=== PATIENT | male | born 1970 | race Two or more races ===

== ENCOUNTER → 2020-01-22 13:16 | Outpatient (BNVA) | payer OTHER, SELFPAY | PROVIDERS: PCP Family Medicine; Referring Provider Family Medicine; Visit Provider Physician Assistant | DX: K75.81 Nonalcoholic steatohepatitis (NASH) (principal) | CPT/HCPCS: 99213 ==

== ENCOUNTER 2020-02-22 11:49 | Outpatient (REF) | payer OTHER, SELFPAY ==
[2020-02-22 13:31] LABS: Bilirubin Direct 0.3 mg/dL (0.0-0.5); Cholesterol 172 mg/dL; HDL Cholesterol 26 mg/dL; LDL Cholesterol Calculated 99 mg/dl; Triglycerides 237 mg/dL
[2020-02-23 07:16] LABS: Insulin Level Total 221.5 uIU/mL
[2020-02-25 08:08] LABS: HBc Num1 0.07 S/CO (0.00-0.79); HBsAGNum1 0.22 S/CO (0.00-0.99); Hepatitis B Core Antibody Nonreactive (Nonreactive); Hepatitis B Surface Antigen Negative (Negative)
[2020-02-25 08:27] LABS: ~Hepatitis B Surface Antibody REACTIVE (Nonreactive); ~Hepatitis C Antibody Nonreactive (Nonreactive)
[2020-02-27 07:46] LABS: HBS Num1 134.62 mIU/mL (0-7.99); Hepatitis A Antibody IgM 0.57 Index (0-0.79); ~HepC Num1 0.14 S/CO (0.00-0.79); ~Hepatitis A Antibody IgM Nonreactive (Nonreactive)
== END 2020-02-22 11:50 | disposition home or self-care (01) ==
LOC: HO.LAB 11:49
PROVIDERS: PCP Family Medicine; Visit Provider Physician Assistant
DX: Z01.84 Encounter for antibody response examination (principal); K75.81 Nonalcoholic steatohepatitis (NASH)
CPT/HCPCS: 80061; 82248; 83525; 86704; 86706; 86709; 86803; 87340

== ENCOUNTER → 2020-03-03 09:04 | Outpatient (BNVA) | payer OTHER, SELFPAY | PROVIDERS: PCP Family Medicine; Visit Provider Physician Assistant | DX: R74.8 Abnormal levels of other serum enzymes (principal) | CPT/HCPCS: Q3014 ==

== ENCOUNTER 2020-03-07 16:19 | Outpatient (REF) | payer OTHER, SELFPAY | END 2020-03-07 16:20 | disposition home or self-care (01) | LOC: HO.LAB 16:19 | PROVIDERS: Visit Provider Internal Medicine | DX: Z20.828 Contact with and (suspected) exposure to other viral communicable diseases (principal) | CPT/HCPCS: C9803; U0003 ==

== ENCOUNTER 2020-04-26 09:49 | Outpatient (REF) | payer OTHER, SELFPAY | END 2020-04-26 09:50 | disposition home or self-care (01) | LOC: HO.LAB 09:49 | PROVIDERS: PCP Family Medicine; Visit Provider Internal Medicine | DX: Z20.822 Contact with and (suspected) exposure to COVID-19 (principal) | CPT/HCPCS: 36415; C9803; U0003 ==

== ENCOUNTER 2020-08-13 08:02 | Outpatient (REF) | payer OTHER, SELFPAY ==
[2020-08-13 10:45] LABS: MANUAL DIFF FLAG NO
[2020-08-13 11:03] LABS: Basophils Percent Auto 0.3 % (0-2); Eosinophils Absolute Auto 0.2 X10*3/uL (0.0-0.4); Eosinophils Percent Auto 2.4 % (0-4); Hematocrit 41.1 % (42-52); Hemoglobin 13.7 g/dl (14.0-18.0); Imm Gran Abs Auto 0.09 X10*3/uL (0.00-0.03); Imm Gran Pct Auto 1.2 % (0.0-0.4); Lymphocytes Absolute Auto 1.8 X10*3/uL (1.2-4.9); Lymphocytes Percent Auto 24.9 % (20-40); Mean Corpuscular HGB Conc 33.3 g/dl (31.0-36.0); Mean Corpuscular Hemoglobin 29.8 pg (27.0-33.0); Mean Corpuscular Volume 89.5 fL (80-98); Mean Platelet Volume 11.7 fL (9.4-12.4); Monocytes Absolute Auto 0.6 X10*3/uL (0.1-1.2); Monocytes Percent Auto 7.7 % (2-11); Neutrophils Absolute Auto 4.7 X10*3/uL (2.0-8.3); Neutrophils Percent Auto 63.5 % (45-73); Platelet Count 178 X10*3/uL (160-400); Red Blood Count 4.59 X10*6/uL (4.60-5.80); Red Cell Distribution Width 12.4 % (11.0-16.0); White Blood Count 7.4 X10*3/uL (4.8-10.8)
[2020-08-13 11:20] LABS: Alanine Aminotransferase 107 U/L (0-40); Albumin Level 4.5 g/dL (3.5-5.0); Alkaline Phosphatase 90 U/L (39-117); Anion Gap 13 (12-20); Aspartate Amino Transferase 58 U/L (5-37); Bilirubin Direct 0.3 mg/dL (0.0-0.5); Bilirubin Total 0.9 mg/dL (0.0-1.0); Blood Urea Nitrogen 12 mg/dL (9-16); Calcium 9.1 mg/dL (8.4-10.2); Carbon Dioxide 25 mmol/L (22-29); Chloride 106 mmol/L (96-108); Cholesterol 195 mg/dL; Estimated Glomerular Filt Rate > 60; Glucose Random 101 mg/dL (60-115); HDL Cholesterol 26 mg/dL; LDL Cholesterol Calculated 127 mg/dl; Potassium 4.1 mmol/L (3.3-5.1); Sodium 140 mmol/L (135-145); Total Protein 7.3 g/dL (6.5-8.0); Triglycerides 213 mg/dL
[2020-08-14 14:12] LABS: Alpha 1 Anti-trypsin 131 mg/dL (83-199)
[2020-08-15 12:47] LABS: Mitochondrial Antibodies NEGATIVE (NEGATIVE)
[2020-08-15 16:01] LABS: Anti Nuclear Antibody Screen NEGATIVE (NEGATIVE)
[2020-08-18 15:57] LABS: Smooth Muscle Antibody <20 U (<20)
== END 2020-08-13 08:03 | disposition home or self-care (01) ==
LOC: HO.LAB 08:02
PROVIDERS: PCP Family Medicine; Referring Provider Family Medicine; Visit Provider Physician Assistant
DX: K76.0 Fatty (change of) liver, not elsewhere classified (principal); R10.11 Right upper quadrant pain; F17.200 Nicotine dependence, unspecified, uncomplicated; R74.8 Abnormal levels of other serum enzymes; K75.81 Nonalcoholic steatohepatitis (NASH); Z12.11 Encounter for screening for malignant neoplasm of colon
CPT/HCPCS: 36415; 80053; 80061; 82103; 82248; 85025; 86038; 86039; 86255; 86256; 99212

== ENCOUNTER 2021-03-26 09:10 | Day surgery (SDC) | payer OTHER, SELFPAY ==
[2021-03-19 11:55] VITALS: BMI 38.0
--- NOTE | 2021-03-25 10:26 | P.CONAN_ITS ---
Documented by User: Lynn Lindsay NP 03/25/21 10:27 HPI - Anesthesia Eval Consult details Narrative: 50yo M for Colonoscopy PMFSH Active Problems Active Problems: All Active Problems (Updated 03/19/21 @ 11:53 by Ingrid Mendoza, DELFINA) CARROLL (nonalcoholic steatohepatitis) (Acute) Screen for colon cancer (Acute) Elevated liver enzymes (Acute) Past Medical History Medical History Arthritis Asthma Constipation Elevated liver enzymes HTN (hypertension) Low back pain CARROLL (nonalcoholic steatohepatitis) Neuropathy DIMITRI on CPAP Family History Family History Father Encounter for kidney dialysis Heart problem High blood pressure Mother Blood circulation, collateral High blood pressure Arthritis Surgical History Surgical History H/O arthroscopy of knee Social History Social History Household Members: Significant Other Alcohol intake: current Alcohol intake frequency: holidays/special occasions only Patient Tobacco Use Status: Current someday Tobacco user Tobacco use type: Cigarette Use of substances other than those prescribed or required for medical reasons: No Have you been hit, kicked, punched, or otherwise hurt by someone within the past year? 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 Allergies Allergy/AdvReac Type Severity Reaction Status Date / Time No Known Allergies Allergy Verified 03/19/21 11:53 Home Medications Medication Instructions Recorded Confirmed Last Taken Type albuterol sulfate 90 mcg/actuation 2 puff INHALATION Q4-6H PRN 01/22/20 03/19/21 Unknown History aerosol inhaler chlorthalidone 25 mg tablet 25 mg PO DAILY 01/22/20 03/19/21 Unknown History cholecalciferol (vitamin D3) 25 25 mcg PO DAILY 01/22/20 03/19/21 Unknown History mcg (1,000 unit) tablet gabapentin 300 mg capsule 300 mg PO TID 01/22/20 03/19/21 Unknown History hydrochlorothiazide 25 mg tablet 25 mg PO DAILY 01/22/20 03/19/21 Unknown Hi story lisinopril 5 mg tablet 5 mg PO DAILY 01/22/20 03/19/21 Unknown History loratadine 10 mg tablet 10 mg PO DAILY 01/22/20 03/19/21 Unknown History meloxicam 7.5 mg tablet 7.5 mg PO DAILY 01/22/20 03/19/21 Unknown History naproxen 500 mg tablet 500 mg PO BID 01/22/20 03/19/21 Unknown History trazodone 50 mg tablet 50 mg PO BEDTIME 01/22/20 03/19/21 Unknown History Exam Exam Date and Time: March 25, 2021 1026 Height,Weight and Vital Signs: Height 6 ft 1 in Weight 130.635 kg Pertinent Lab Results Pertinent Lab Results: Laboratory Tests 08/13/20 08/13/20 09:19 09:19 WBC 7.4 Hgb 13.7 L Hct 41.1 L Plt Count 178 Sodium 140 Potassium 4.1 Chloride 106 Carbon Dioxide 25 BUN 12 Creatinine 1.05 Assessment and Plan Assessment Anesthesia Assessment: Chart Reviewed Documented by User: Regina Agudelo MD 03/26/21 11:12 [facility] Past Medical History Medical History Arthritis Asthma Constipation Elevated liver enzymes HTN (hypertension) Low back pain CARROLL (nonalcoholic steatohepatitis) Neuropathy DIMITRI on CPAP Functional capacity: independent ambulation Family History Family History Father Encounter for kidney dialysis Heart problem High blood pressure Mother Blood circulation, collateral High blood pressure Arthritis Family history of problems with anesthesia: No Surgical History Surgical History H/O arthroscopy of knee History of Problems with Anesthesia: No Social History Social History Household Members: Significant Other Alcohol intake: current Alcohol intake frequency: holidays/special occasions only Patient Tobacco Use Status: Current someday Tobacco user Tobacco use type: Cigarette Use of substances other than those prescribed or required for medical reasons: No Have you been hit, kicked, punched, or otherwise hurt by someone within the past year? 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 Allergies Allergy/AdvReac Type Severity Reaction Status Date / Time No Known Allergies Allergy Verified 03/19/21 11:53 Home Medications Medication Instructions Recorded Confirmed Last Taken Type albuterol sulfate 90 mcg/actuation 2 puff INHALATION Q4-6H PRN 01/22/20 03/19/21 Unknown History aerosol inhaler chlorthalidone 25 mg tablet 25 mg PO DAILY 01/22/20 03/19/21 Unknown History cholecalciferol (vitamin D3) 25 25 mcg PO DAILY 01/22/20 03/19/21 Unknown History mcg (1,000 unit) tablet gabapentin 300 mg capsule 300 mg PO TID 01/22/20 03/19/21 Unknown History hydrochlorothiazide 25 mg tablet 25 mg PO DAILY 01/22/20 03/19/21 Unknown History lisinopril 5 mg tablet 5 mg PO DAILY 01/22/20 03/19/21 Unknown History loratadine 10 mg tablet 10 mg PO DAILY 01/22/20 03/19/21 Unknown History meloxicam 7.5 mg tablet 7.5 mg PO DAILY 01/22/20 03/19/21 Unknown History naproxen 500 mg tablet 500 mg PO BID 01/22/20 03/19/21 Unknown History trazodone 50 mg tablet 50 mg PO BEDTIME 01/22/20 03/19/21 Unknown History Assessment and Plan Final Anesthetic Review Family History of Problems with Anesthesia: No History of Problems with Anesthesia: No ASA Class: III Final Preanesthetic Review: No Changes in Pt Med Stat, Meds/Allgs Chart Reviewed, Consent Obtained/Reviewed, Anes Risks/Benef Reviewed and DNR Form (If Appl.) Patient Risk: Intermediate Procedure Risk: Low Anesthetic Plan Anesthetic Plan: MAC: Disposition: Standard PACU
[2021-03-26 09:41] VITALS: BP 144/95; PULSE 59; RESP 16; TEMP 35.9; O2SAT 97; BMI 38.0
[2021-03-26] MEDS: Lactated Ringers 1,000 ML 100 ML IVCONT (10:03)
--- NOTE | 2021-03-26 10:04 | MHC.SHP ---
Pre-Procedural Eval Section A Date of Service: 03/26/21 Section B Chief Complaint: Screening Relevant Family History (Specify if Yes): No Relevant Social History: Tobacco Use Present Medications: see Short Stay Collaborative assessment Medical History: Significant History (Arthritis Asthma Constipation Elevated liver enzymes HTN (hypertension) Low back pain CARROLL (nonalcoholic steatohepatitis) Neuropathy DIMITRI on CPAP) History of Previous Operations: Relevant previous surgery/procedure and date(s) (knee surg) Allergies: Allergies Allergy/AdvReac Type Severity Reaction Status Date / Time No Known Allergies Allergy Verified 03/19/21 11:53 Review of Systems Sugical H&P ROS: Negative: Constitution, Cardiovascular, Respiratory, Neurological, Psychiatric, Hem-Onc, Allergic/Immunologic, Gastrointestinal, Genitourinary, Musculoskeletal, Integumentary, Endocrine and Eyes/Ears/Nose/Throat Exam Surgical H&P Exam: Normal: HEENT, Normal: Heart, Normal: Lungs, Normal: Extremities, Normal: Abdomen, Normal: Skin and Normal: Neurological Plan Diagnosis/Plan: Unchanged I have reviewed the history and physical and performed a pertinent physical examination on my patient. No changes have occurred unless specified.
--- NOTE | 2021-03-26 11:09 | P.BOP_ITS ---
Brief Operative Note Date of Service: 03/26/21 Pre-op diagnosis: colon screening Post-op diagnosis: same Procedure: see op note Surgeon: Chance Jones MD Anesthesia: MAC Was an Sales And Management Trainee used for this Procedure?: No Estimated blood loss (mL): 0 Condition: stable Disposition: PACU
--- NOTE | 2021-03-26 11:09 | P.OP_ITS ---
Operative Note Operative Note Date of Service: 03/26/21 Narrative: Operative Information Procedure Description: Colonoscopy COLONOSCOPY Instrument: Olympus variable stiffness pediatric scope 190L Colonoscopy Monitoring: Vital signs and clinical assessment, continuous EKG monitoring, Pulse oximetry, Carbon Dioxide monitoring and blood pressure monitoring were done throughout the procedure. Colon withdrawal time was 12 minutes. Procedure: The patient was placed in the left lateral decubitis position and pre-procedure medications were administered. After a digital rectal examination of the ano-rectum, the video colonoscope was inserted into the rectum and advanced through the colon to the cecum/TI. The colonoscope was slowly withdrawn in a retrograde panoramic fashion and the colon mucosa was carefully examined including a retroflexed view of the rectum. Findings and interventions are described below. Procedure Difficulty:moderate due to looping, pressure applied Findings: Terminal Ileum- unable to intubate Cecum:normal Ascending Colon: x 1 sessile polyp 6-8 mm removed with forceps Transverse Colon - x 3 sessile polyps 9-10 mm removed with cold snare Descending Colon:normal Sigmoid Colon: normal Rectum: Retroflexion with small internal hemorrhoids, grade I Anorectum - normal Colon preparation: [place] Bowel Preparation Scale Right colon; 2 Transverse colon: 3 Left colon; 3 (0 = Unprepared colon segment with mucosa not seen due to solid stool that cannot be cleared. 1 = Portion of mucosa of the colon segment seen, but other areas of the colon segment not well seen due to staining, residual stool and/or opaque liquid. 2 = Minor amount of residual staining, small fragments of stool and/or opaque liquid, but mucosa of colon segment seen well. 3 = Entire mucosa of colon segment seen well with no residual staining, small fragments of stool or opaque liquid) Impression and Post Procedure Diagnosis: polyps internal hemorrhoids Plan: High fiber diet leaflet Avoid straining at stool, epsom salts and sitz bath, anusol supps or cream Repeat Colonoscopy in 3-4 years due to polyps or earlier if clinically indicated next time use adult scope Above findings were reviewed with the patient and relevant handouts were provided if indicated.
[2021-03-26 12:03] VITALS: BP 127/71; PULSE 87; RESP 18; TEMP 36.5; O2SAT 88
[2021-03-26 12:06] VITALS: BP 86/44; PULSE 63; RESP 14; TEMP 36.3; O2SAT 95
[2021-03-26 12:46] VITALS: BP 168/78; PULSE 43; RESP 16; TEMP 36.3; O2SAT 95
== END 2021-03-26 13:17 | disposition home or self-care (01) ==
PROVIDERS: PCP Family Medicine; Visit Provider Internal Medicine Gastroenterology
PROC: 0DJD8ZZ Inspection of Lower Intestinal Tract, Via Natural or Artificial Opening Endoscopic (ICD-10-PCS; CPT 45378; principal; 2021-03-26 10:20)
DX: Z12.11 Encounter for screening for malignant neoplasm of colon (principal); D12.3 Benign neoplasm of transverse colon; K63.5 Polyp of colon; K64.0 First degree hemorrhoids; K59.00 Constipation, unspecified; K75.81 Nonalcoholic steatohepatitis (NASH); I10 Essential (primary) hypertension; G47.33 Obstructive sleep apnea (adult) (pediatric); R74.8 Abnormal levels of other serum enzymes; J45.909 Unspecified asthma, uncomplicated; Z79.899 Other long term (current) drug therapy; Z99.89 Dependence on other enabling machines and devices; Z86.16 Personal history of COVID-19; F17.210 Nicotine dependence, cigarettes, uncomplicated
CPT/HCPCS: 45385; 45380; 88305

== ENCOUNTER → 2021-05-27 11:45 | Outpatient (BNVA) | payer OTHER, SELFPAY | PROVIDERS: PCP Family Medicine; Referring Provider Family Medicine; Visit Provider Physician Assistant | DX: K75.81 Nonalcoholic steatohepatitis (NASH) (principal); D12.6 Benign neoplasm of colon, unspecified; R74.8 Abnormal levels of other serum enzymes | CPT/HCPCS: 99212 ==

== ENCOUNTER 2021-06-25 10:06 | Outpatient (REF) | payer OTHER, SELFPAY ==
--- NOTE | ~2021-06-25 | US_ITS ---
EXAMINATION: US COMPLETE ABDOMEN WITH LIVER ELASTOGRAPHY CLINICAL INFORMATION: Elevated LFTs COMPARISON: Abdominal ultrasound 12/31/2019 TECHNIQUE: Real-time imaging of the abdominal viscera. Noninvasive ultrasound liver fibrosis assessment is performed using Donnie ElastPQ point quantification shear wave elastography (2D-SWE) with a C5-2 MHz transducer. Multiple elastography samples are obtained. Examination is mildly limited secondary to overlying bowel gas. FINDINGS: PANCREAS: Visualized portions of pancreas are normal in appearance. ABDOMINAL AORTA: The proximal, middle, and distal aortic segments are normal in caliber. INFERIOR VENA CAVA: Obscured by overlying bowel gas and therefore not evaluated. LIVER: Diffusely increased liver echogenicity with regions of decreased echogenicity suggesting focal fatty sparing. No intrahepatic biliary duct dilatation. The right lobe measures 17.1 cm in length. The left lobe measures 12.0 cm in length. Portal flow is hepatopedal Shear wave liver elastography median stiffness is 1.9 m/s (reference: normal median stiffness is 1.3 m/s or less). IQR/median stiffness to assess sampling precision is 0.16 (reference: good quality data set is IQR/median stiffness of 0.15 or less). GALLBLADDER: Normal. The gallbladder is physiologically distended without evidence of stones, sludge, polyps, wall thickening or pericholecystic fluid. Negative sonographic Stovall's sign. COMMON BILE DUCT: Normal in caliber measuring 0.3 cm in diameter. RIGHT KIDNEY: Normal. No hydronephrosis. No renal calculi or focal parenchymal lesions. The kidney measures 11.3 cm in maximum dimension. LEFT KIDNEY: Normal. No hydronephrosis. No renal calculi or focal parenchymal lesions. The kidney measures 11.7 cm in maximum dimension. SPLEEN: Normal. The spleen measures 12.9 cm in maximum dimension. FREE FLUID: None. US/US abdomen comp w elastography IMPRESSION: 1. Diffusely increased liver echogenicity is again noted suggesting hepatic steatosis. There are areas of decreased echogenicity which although nonspecific likely represent regions of focal fatty sparing. Correlation with LFTs recommended. 2. Liver elastography: Measurements are suggestive of compensated advanced chronic liver disease but need further test for confirmation. Liver stiffness measurement is without significant change from prior exam (change under 10%). REFERENCE: Society of Radiologists in Ultrasound Liver Stiffness Thresholds (2020): LIVER STIFFNESS THRESHOLDS: *Liver Stiffness equal or less than 1.3 m/s: High probability of being normal. *Liver Stiffness less than 1.7 m/s: In the absence of other known clinical signs, rules out compensated advanced chronic liver disease. *Liver Stiffness 1.7-2.1 m/s: Suggestive of compensated advanced chronic liver disease but need further test for confirmation. *Liver Stiffness over 2.1 m/s: Rules in compensated advanced chronic liver disease. *Liver Stiffness over 2.4 m/s: Suggestive of clinically significant portal hypertension. QUALITY OF DATA SET: *IQR/Median value equal or less than 0.15 implies a quality data set. *IQR/Median value over 0.15 implies a poor quality data set. SIGNIFICANT CHANGE FROM PRIOR EXAM: Significant change if liver stiffness measurement is 10% or greater from prior exam. OTHER CONSIDERATIONS: The stage of liver fibrosis may be overestimated in the setting of acute hepatitis, liver inflammation, elevated liver function tests, hepatic vascular congestion, obstructive cholestasis, non-fasting state, and infiltrative diseases such as amyloidosis and lymphoma. In some patients with NAFLD, the liver stiffness thresholds for compensated advanced chronic liver disease may be lower. In causes other than viral hepatitis and NAFLD, liver stiffness thresholds are not well established.
[2021-06-25 11:18] LABS: Basophils Absolute Auto 0.1 X10*3/uL (0.0-0.2); Basophils Percent Auto 0.6 % (0-2); Eosinophils Absolute Auto 0.2 X10*3/uL (0.0-0.4); Eosinophils Percent Auto 2.8 % (0-4); Hematocrit 43.4 % (42.0-52.0); Hemoglobin 13.9 g/dl (14.0-18.0); Imm Gran Abs Auto 0.13 X10*3/uL (0.00-0.03); Imm Gran Pct Auto 1.6 % (0.0-0.4); MANUAL DIFF FLAG SCAN; Mean Corpuscular Hemoglobin 29.4 pg (27.0-33.0); Mean Corpuscular Volume 91.9 fL (80.0-98.0); Mean Platelet Volume 12.7 fL (9.4-12.4); Monocytes Absolute Auto 0.5 X10*3/uL (0.1-1.2); Monocytes Percent Auto 6.5 % (2-11); Neutrophils Percent Auto 63.5 % (45-73); PLT CLUMP 1; Red Blood Count 4.72 X10*6/uL (4.60-5.80); Red Cell Distribution Width 12.7 % (11.0-16.0); SCAN SMEAR FLAG 1
[2021-06-25 11:19] LABS: Platelet Count 147 X10*3/uL (160-400); White Blood Count 7.9 X10*3/uL (4.8-10.8)
[2021-06-25 11:46] LABS: SLIDE REVIEW VERIFIED
[2021-06-25 12:33] LABS: Alanine Aminotransferase 84 U/L (0-40); Albumin Level 4.3 g/dL (3.5-5.0); Alkaline Phosphatase 76 U/L (39-117); Anion Gap 17 (12-20); Aspartate Amino Transferase 65 U/L (5-37); Bilirubin Total 1.4 mg/dL (0.0-1.0); Blood Urea Nitrogen 14 mg/dL (9-16); Calcium 9.6 mg/dL (8.4-10.2); Carbon Dioxide 19 mmol/L (22-29); Chloride 107 mmol/L (96-108); Cholesterol 242 mg/dL; Estimated Glomerular Filt Rate 57; Glucose Random 92 mg/dL (60-115); HDL Cholesterol 29 mg/dL; LDL Cholesterol Calculated 176 mg/dl; Potassium 5.1 mmol/L (3.3-5.1); Sodium 138 mmol/L (135-145); Total Protein 7.8 g/dL (6.5-8.0); Triglycerides 186 mg/dL
[2021-07-02 16:42] LABS: FIB-ALT 70 U/L (9-46); FIB-Alpha-2-Macroglobulin 132 mg/dL (106-279); FIB-Apolipoprotein A1 108 mg/dL (94-176); FIB-GGT 48 U/L (3-95); FIB-Haptoglobin 165 mg/dL (43-212); FIB-Total Bilirubin 0.9 mg/dL (0.2-1.2); Liver Fibrosis Score 0.26; Liver Fibrosis Stage F0-F1; Nec Inflam Act Grade A1-A2
== END 2021-06-25 10:07 | disposition home or self-care (01) ==
LOC: HO.US 10:06
PROVIDERS: PCP Family Medicine; Visit Provider Physician Assistant
DX: R74.8 Abnormal levels of other serum enzymes (principal); K76.0 Fatty (change of) liver, not elsewhere classified; K75.81 Nonalcoholic steatohepatitis (NASH)
CPT/HCPCS: 36415; 76705; 76981; 80053; 80061; 81596; 85025

== ENCOUNTER 2021-12-03 12:26 | Outpatient (REF) | payer OTHER, SELFPAY ==
--- NOTE | ~2021-12-03 | XR_ITS ---
EXAMINATION: XR KNEE, RIGHT XR KNEE, LEFT CLINICAL INFORMATION: Pain COMPARISON: Right and left knee radiographs from 10/14/2010 TECHNIQUE: 4 views of each knee FINDINGS: RIGHT: No acute visible fracture or dislocation. Redemonstration of bony exostosis along the right medial distal femoral metadiaphysis as well as a right medial tibial proximal diaphysis. Mild multicompartment degenerative changes. Spurring of the tibial spines. Enthesopathy at the quadriceps insertion site as well as patellar tendon origination site. Fabella noted in the posterior compartment. Joint spaces and alignment are otherwise maintained. Trace knee joint effusion. Soft tissues are unremarkable. LEFT: No acute visible fracture or dislocation. 6 mm well-corticated ossific density along the medial femoral distal metadiaphysis. Mild multicompartment degenerative changes. Mild narrowing of the medial femorotibial compartment. Enthesopathy at the quadriceps insertion site and patellar tendon origination site. Fabella noted in the posterior compartment. Joint spaces and alignment are maintained. Trace knee joint effusion. Soft tissues are unremarkable. XR/XR knee LT 4V IMPRESSION: 1. No acute visible fracture or dislocation. 2. Redemonstration of bony exostosis along the right medial distal femoral metadiaphysis as well as a right medial tibial proximal diaphysis. 3. Bilateral mild multicompartment degenerative changes. 4. Bilateral trace knee joint effusion.
--- NOTE | ~2021-12-03 | XR_ITS ---
EXAMINATION: XR KNEE, RIGHT XR KNEE, LEFT CLINICAL INFORMATION: Pain COMPARISON: Right and left knee radiographs from 10/14/2010 TECHNIQUE: 4 views of each knee FINDINGS: RIGHT: No acute visible fracture or dislocation. Redemonstration of bony exostosis along the right medial distal femoral metadiaphysis as well as a right medial tibial proximal diaphysis. Mild multicompartment degenerative changes. Spurring of the tibial spines. Enthesopathy at the quadriceps insertion site as well as patellar tendon origination site. Fabella noted in the posterior compartment. Joint spaces and alignment are otherwise maintained. Trace knee joint effusion. Soft tissues are unremarkable. LEFT: No acute visible fracture or dislocation. 6 mm well-corticated ossific density along the medial femoral distal metadiaphysis. Mild multicompartment degenerative changes. Mild narrowing of the medial femorotibial compartment. Enthesopathy at the quadriceps insertion site and patellar tendon origination site. Fabella noted in the posterior compartment. Joint spaces and alignment are maintained. Trace knee joint effusion. Soft tissues are unremarkable. XR/XR knee RT 4V IMPRESSION: 1. No acute visible fracture or dislocation. 2. Redemonstration of bony exostosis along the right medial distal femoral metadiaphysis as well as a right medial tibial proximal diaphysis. 3. Bilateral mild multicompartment degenerative changes. 4. Bilateral trace knee joint effusion.
== END 2021-12-03 12:27 | disposition home or self-care (01) ==
LOC: HO.XRAY 12:26
PROVIDERS: PCP Family Medicine; Visit Provider Family Medicine
DX: M25.561 Pain in right knee (principal); M25.562 Pain in left knee
CPT/HCPCS: 73564

== ENCOUNTER → 2021-12-21 13:33 | Outpatient (BNVA) | payer OTHER, SELFPAY | PROVIDERS: PCP Family Medicine; Visit Provider Physician Assistant | DX: K75.81 Nonalcoholic steatohepatitis (NASH) (principal); R74.01 Elevation of levels of liver transaminase levels; R74.8 Abnormal levels of other serum enzymes | CPT/HCPCS: 99212 ==

== ENCOUNTER 2022-01-08 09:38 | Outpatient (REF) | payer OTHER, SELFPAY ==
--- NOTE | ~2022-01-08 | US_ITS ---
EXAMINATION: US ABDOMEN LIMITED CLINICAL INFORMATION: Nonalcoholic steatohepatitis. COMPARISON: Ultrasound abdomen complete 06/25/2021 and 12/31/2019. TECHNIQUE: Real-time imaging of the right upper quadrant abdominal viscera. FINDINGS: PANCREAS: Normal. LIVER: The spleen is enlarged measuring 20.4 cm in length. The liver contour is normal. Parenchymal echogenicity is diffusely increased with areas of focal fatty sparing adjacent to gallbladder. No other focal hepatic lesions seen. There is no intrahepatic biliary duct dilatation seen. GALLBLADDER: Normal. The gallbladder is physiologically distended without evidence of stones, sludge, polyps, wall thickening or pericholecystic fluid. COMMON BILE DUCT: Normal in caliber measuring 0.2 cm in diameter. RIGHT KIDNEY: No hydronephrosis or renal calculi. The kidney measures 10.8 cm in maximum dimension. There is an anechoic cyst upper/midpole measuring 1.0 x 1.0 x 1.0 cm. FREE FLUID: None. US/US abdomen limited IMPRESSION: Mild hepatomegaly with diffuse hepatic steatosis and areas of focal fatty sparing adjacent to gallbladder. Similar findings were seen on the previous ultrasound 12/23/2019. Small cyst upper to midpole right kidney.
[2022-01-08 09:48] LABS: MANUAL DIFF FLAG NO
[2022-01-08 10:03] LABS: Basophils Percent Auto 0.5 % (0-2); Eosinophils Absolute Auto 0.1 X10*3/uL (0.0-0.4); Eosinophils Percent Auto 1.7 % (0-4); Hemoglobin 12.7 g/dl (14.0-18.0); Imm Gran Pct Auto 1.3 % (0.0-0.4); Lymphocytes Absolute Auto 2.1 X10*3/uL (1.2-4.9); Lymphocytes Percent Auto 26.4 % (20-40); Mean Corpuscular HGB Conc 33.4 g/dl (31.0-36.0); Mean Corpuscular Volume 89.6 fL (80.0-98.0); Mean Platelet Volume 11.4 fL (9.4-12.4); Monocytes Absolute Auto 0.5 X10*3/uL (0.1-1.2); Monocytes Percent Auto 6.5 % (2-11); Neutrophils Percent Auto 63.6 % (45-73); Platelet Count 175 X10*3/uL (160-400); Red Blood Count 4.24 X10*6/uL (4.60-5.80); Red Cell Distribution Width 12.5 % (11.0-16.0); White Blood Count 7.9 X10*3/uL (4.8-10.8)
[2022-01-08 10:23] LABS: Alanine Aminotransferase 84 U/L (0-40); Albumin Level 4.5 g/dL (3.5-5.0); Alkaline Phosphatase 72 U/L (39-117); Aspartate Amino Transferase 64 U/L (5-37); Bilirubin Direct 0.3 mg/dL (0.0-0.5); Total Protein 7.4 g/dL (6.5-8.0)
[2022-01-08 10:25] LABS: Estimated Average Glucose 131 mg/dL; Hemoglobin A1c % 6.2 %
[2022-01-08 10:39] LABS: Thyroid Stimulating Hormone 1.03 uIU/mL (0.32-4.0)
[2022-01-11 13:32] LABS: Anti Nuclear Antibody Screen NEGATIVE (NEGATIVE)
[2022-01-13 01:36] LABS: FIB-ALT 73 U/L (9-46); FIB-Alpha-2-Macroglobulin 133 mg/dL (106-279); FIB-Apolipoprotein A1 90 mg/dL (94-176); FIB-GGT 54 U/L (3-95); FIB-Haptoglobin 187 mg/dL (43-212); FIB-Total Bilirubin 0.8 mg/dL (0.2-1.2); Liver Fibrosis Score 0.28; Liver Fibrosis Stage F1; Nec Inflam Act Grade A1-A2; Nec Inflam Act Score 0.43
[2022-01-14 09:46] LABS: Smooth Muscle Antibody <20 U (<20)
== END 2022-01-08 09:39 | disposition home or self-care (01) ==
LOC: HO.US 09:38
PROVIDERS: PCP Family Medicine; Visit Provider Physician Assistant
DX: R74.01 Elevation of levels of liver transaminase levels (principal); R74.8 Abnormal levels of other serum enzymes; K75.81 Nonalcoholic steatohepatitis (NASH)
CPT/HCPCS: 36415; 76705; 80076; 81596; 83036; 84443; 85025; 86015; 86038; 86039

== ENCOUNTER 2022-03-16 09:29 | Outpatient (REF) | payer OTHER, SELFPAY ==
--- NOTE | ~2022-03-16 | XR_ITS ---
EXAMINATION: XR SHOULDER, LEFT CLINICAL INFORMATION: Left shoulder pain. Limited range of motion. COMPARISON: None TECHNIQUE: Left shoulder is imaged in 6 views. FINDINGS: There is mild elevation distal clavicle suggesting acromioclavicular strain. There are mild degenerative changes acromioclavicular joint. There is no fracture or dislocation or destructive process. No visible rotator cuff calcifications. XR/XR shoulder LT min 2V IMPRESSION: 1. Mild elevation distal clavicle suggesting acromioclavicular strain. 2. Mild degenerative changes acromioclavicular joint. 3. No fracture or dislocation. 4. No visible rotator cuff calcifications.
== END 2022-03-16 09:30 | disposition home or self-care (01) ==
LOC: HO.XRAY 09:29
PROVIDERS: PCP Family Medicine; Visit Provider Family Medicine
DX: M25.512 Pain in left shoulder (principal)
CPT/HCPCS: 73030

== ENCOUNTER 2022-09-21 07:51 | Outpatient (REF) | payer OTHER, SELFPAY ==
--- NOTE | ~2022-09-21 | US_ITS ---
EXAMINATION: US ABDOMEN COMPLETE CLINICAL INFORMATION: Abdominal pain and bloating. COMPARISON: Ultrasound abdomen limited 01/08/2022. Ultrasound abdomen complete 06/25/2021. TECHNIQUE: Real-time imaging of the abdominal viscera. FINDINGS: PANCREAS: Normal. ABDOMINAL AORTA: The proximal, mid, and distal segments are normal in caliber. INFERIOR VENA CAVA: Visualized portions are normal. LIVER: Liver is enlarged measuring 18.7 cm in span. The liver contour is normal. There is diffuse increased liver parenchymal echogenicity, consistent with hepatic steatosis, with focal fatty sparing. No focal hepatic lesion. There is no intrahepatic biliary duct dilatation seen. GALLBLADDER: The gallbladder is physiologically contracted without evidence of stones, sludge, polyps, wall thickening or pericholecystic fluid. COMMON BILE DUCT: Normal in caliber measuring 0.3 cm in diameter. RIGHT KIDNEY: Benign-appearing 1.2 cm renal cyst, no imaging follow-up recommended. No hydronephrosis or renal calculi. The kidney measures 11.3 cm in maximum dimension. LEFT KIDNEY: Benign-appearing 1.5 cm renal cyst, no imaging follow-up recommended. No hydronephrosis or renal calculi. The kidney measures 13.6 cm in maximum dimension. SPLEEN: Normal. The spleen measures 12.2 cm in maximum dimension. FREE FLUID: None. US/US abdomen complete IMPRESSION: Hepatomegaly and hepatic steatosis.
== END 2022-09-21 07:52 | disposition home or self-care (01) ==
LOC: HO.US 07:51
PROVIDERS: PCP Family Medicine; Visit Provider Registered Nurse
DX: R14.0 Abdominal distension (gaseous) (principal)
CPT/HCPCS: 76700

== ENCOUNTER 2023-02-08 11:26 | Outpatient (REF) | payer OTHER, SELFPAY ==
[2023-02-08 13:54] LABS: Estimated Average Glucose 140 mg/dL; Hemoglobin A1C 148.5904 umol/L; Hemoglobin A1c % 6.5 % (<6.0)
[2023-02-08 13:58] LABS: Cholesterol 231 mg/dL (<200); HDL Cholesterol 25 mg/dL (>40); LDL Cholesterol Calculated 169 mg/dL (<100); Triglycerides 188 mg/dL (<150)
[2023-02-08 13:59] LABS: Alanine Aminotransferase 76 U/L (0-40); Albumin Level 4.5 g/dL (3.5-5.0); Alkaline Phosphatase 79 U/L (39-117); Anion Gap 14 (12-20); Aspartate Amino Transferase 53 U/L (5-37); Bilirubin Direct 0.3 mg/dL (0.0-0.5); Bilirubin Total 1.4 mg/dL (0.0-1.0); Blood Urea Nitrogen 14 mg/dL (9-16); Calcium 9.7 mg/dL (8.4-10.2); Carbon Dioxide 28 mmol/L (22-29); Chloride 102 mmol/L (96-108); Estimated Glomerular Filt Rate > 60; Glucose Random 114 mg/dL (60-115); Sodium 140 mmol/L (135-145); Total Protein 7.9 g/dL (6.5-8.0)
[2023-02-08 14:18] LABS: TSH reflex Free T4 0.51 uIU/mL (0.32-4.0)
[2023-02-08 14:31] LABS: Folate 7.9 ng/mL (> or = 4.0); Vitamin B12 363 pg/mL (200-900)
[2023-02-08 14:45] LABS: Reflex LDLD? No
== END 2023-02-08 11:27 | disposition home or self-care (01) ==
LOC: HO.HHCL 11:26
PROVIDERS: Visit Provider Family Medicine
DX: I10 Essential (primary) hypertension (principal); R73.01 Impaired fasting glucose; K76.0 Fatty (change of) liver, not elsewhere classified; G61.81 Chronic inflammatory demyelinating polyneuritis
CPT/HCPCS: 36415; 80048; 80061; 80076; 82607; 82746; 83036; 84443

== ENCOUNTER 2023-05-05 09:45 | Outpatient (REF) | payer OTHER, SELFPAY ==
--- NOTE | ~2023-05-05 | XR_ITS ---
EXAMINATION: XR CHEST CLINICAL INFORMATION: Cough for 2 weeks COMPARISON: Chest 12/05/2017 TECHNIQUE: 2 views of the chest were obtained. FINDINGS: No significant abnormality is noted involving the heart, lungs, mediastinum, bony thorax or soft tissues. XR/XR chest 2V IMPRESSION: No acute cardiopulmonary disease.
== END 2023-05-05 09:46 | disposition home or self-care (01) ==
LOC: HO.HHCX 09:45
PROVIDERS: Visit Provider Internal Medicine
DX: R05.1 Acute cough (principal)
CPT/HCPCS: 71046

== ENCOUNTER 2024-01-02 14:52 | Outpatient (REF) | payer OTHER, SELFPAY ==
[2024-01-02 16:49] LABS: Appearance Urine Clear; Color Urine Yellow; Glucose Urine UA >=1000 mg/dL (Negative); Leukocyte Esterase Urine Moderate (2+) (Negative); Nitrite Urine Negative (Negative); PH 5.5 (5.0-9.0); Specific Gravity - Urine >= 1.030 (1.005-1.025); UMIC TRIGGER UACC YES; Urine Blood Trace (Negative); Urine Ketones Negative (Negative); Urine Protein Negative (Neg-Trace)
[2024-01-02 16:56] LABS: Bacteria Urine None Seen (None Seen); Basophils Absolute Auto 0.1 X10*3/uL (0.0-0.2); Basophils Percent Auto 0.6 % (0-2); Eosinophils Absolute Auto 0.1 X10*3/uL (0.0-0.4); Eosinophils Percent Auto 0.7 % (0-4); Hematocrit 41.7 % (42.0-52.0); Hyaline Casts Urine 0-2 /LPF (0-2); Imm Gran Abs Auto 0.11 X10*3/uL (0.00-0.03); Imm Gran Pct Auto 1.2 % (0.0-0.4); Lymphocytes Absolute Auto 1.9 X10*3/uL (1.2-4.9); Lymphocytes Percent Auto 20.2 % (20-40); MANUAL DIFF FLAG SCAN; Mean Corpuscular HGB Conc 33.6 g/dl (31.0-36.0); Mean Corpuscular Hemoglobin 29.2 pg (27.0-33.0); Mean Corpuscular Volume 87.1 fL (80.0-98.0); Mean Platelet Volume 13.2 fL (9.4-12.4); Monocytes Absolute Auto 0.5 X10*3/uL (0.1-1.2); Monocytes Percent Auto 5.7 % (2-11); Neutrophils Absolute Auto 6.8 x10*3/uL (2.0-8.3); Neutrophils Percent Auto 71.6 % (45-73); PLT CLUMP 1; Red Blood Count 4.79 X10*6/uL (4.60-5.80); Red Cell Distribution Width 12.4 % (11.0-16.0); SCAN SMEAR FLAG 1; Squamous Epithelial Cell Urine 0-2 /HPF (0-2); UACC Culture Trigger YES; WBC Urine >50 /HPF (0-5)
[2024-01-02 17:06] LABS: Estimated Average Glucose 275 mg/dL; Hemoglobin A1c % 11.2 % (<6.0)
[2024-01-02 17:31] LABS: Prostate Specific Antigen Scr < 0.10 ng/mL (<0.05-4.0)
[2024-01-02 18:08] LABS: Alanine Aminotransferase 111 U/L (0-40); Albumin Level 4.5 g/dL (3.5-5.0); Alkaline Phosphatase 165 U/L (39-117); Anion Gap 17 (12-20); Aspartate Amino Transferase 64 U/L (5-37); Blood Urea Nitrogen 17 mg/dL (9-16); Calcium 10.6 mg/dL (8.4-10.2); Carbon Dioxide 23 mmol/L (22-29); Chloride 93 mmol/L (96-108); Cholesterol 231 mg/dL (<200); Estimated Glomerular Filt Rate 40; Glucose Random 578 mg/dL (60-115); HDL Cholesterol 23 mg/dL (>40); Potassium 4.3 mmol/L (3.3-5.1); Sodium 129 mmol/L (135-145); TSH reflex Free T4 0.04 uIU/mL (0.32-4.0); Total Protein 8.5 g/dL (6.5-8.0); Triglycerides 690 mg/dL (<150); Vitamin D 25-OH Total 24.2 ng/mL (>30)
[2024-01-02 18:45] LABS: Free T4 (Free Thyroxine) 0.64 ng/dL (0.71-1.85)
[2024-01-02 18:50] LABS: Reflex LDLD? Yes
[2024-01-02 19:22] LABS: Platelet Count 154 X10*3/uL (160-400); SLIDE REVIEW VERIFIED; White Blood Count 9.5 X10*3/uL (4.8-10.8)
[2024-01-04 03:49] LABS: LDL Cholesterol Direct 102 mg/dL (<100)
== END 2024-01-02 14:53 | disposition home or self-care (01) ==
LOC: HO.HHCL 14:52
PROVIDERS: Visit Provider Family Medicine
DX: K76.0 Fatty (change of) liver, not elsewhere classified (principal); I10 Essential (primary) hypertension; R39.9 Unspecified symptoms and signs involving the genitourinary system; R73.01 Impaired fasting glucose; E55.9 Vitamin D deficiency, unspecified; Z12.5 Encounter for screening for malignant neoplasm of prostate
CPT/HCPCS: 36415; 80053; 80061; 81001; 82306; 83036; 83721; 84153; 84439; 84443; 85025; 87086

== ENCOUNTER → 2024-01-25 20:30 | Outpatient (REF) | payer OTHER, SELFPAY | LOC: HO.SL 20:30 | PROVIDERS: PCP Family Medicine; Visit Provider Family Medicine | DX: Z13.89 Encounter for screening for other disorder (principal) ==

== ENCOUNTER 2024-04-24 15:17 | Outpatient (REF) | payer OTHER, SELFPAY ==
--- NOTE | ~2024-04-24 | XR_ITS ---
CLINICAL HISTORY: right knee pain 3 view right knee Comparison: CR/SR - XR KNEE RT 4V - 12/03/21 12:42 EDT Findings: Mild patella Ona. Bony alignment is otherwise anatomic. No acute fracture. [id number] tricompartmental osteoarthritis, most pronounced within the medial compartment with joint space narrowing and osteophyte formation. No erosions. Trace knee joint effusion. Unchanged bony excrescences off the medial aspect of the distal femur and the medial aspect of the proximal tibia. No periosteal reaction or bony destructive change seen. IMPRESSION: Unchanged exam. Continued tricompartmental osteoarthritis, most pronounced in the medial compartment. Unchanged osteochondromas of the medial aspect of the distal femur in the medial aspect of the proximal tibia. No radiographic findings of malignant transformation. This document has been electronically signed by: Alec Singleton MD on 04/25/2024 05:31:45
[2024-04-24 16:51] LABS: Alanine Aminotransferase 87 U/L (0-40); Albumin Level 4.6 g/dL (3.5-5.0); Anion Gap 14 (12-20); Aspartate Amino Transferase 76 U/L (5-37); Bilirubin Direct 0.3 mg/dL (0.0-0.5); Bilirubin Total 1.1 mg/dL (0.0-1.0); Blood Urea Nitrogen 12 mg/dL (9-16); Carbon Dioxide 26 mmol/L (22-29); Chloride 102 mmol/L (96-108); Estimated Glomerular Filt Rate > 60; Glucose Random 151 mg/dL (60-115); Potassium 4.1 mmol/L (3.3-5.1); Sodium 138 mmol/L (135-145); Total Protein 8.5 g/dL (6.5-8.0)
[2024-04-24 16:59] LABS: Alkaline Phosphatase 95 U/L (39-117)
[2024-04-24 17:00] LABS: Creatinine Urine 129.02 mg/dL; Microalbum/Creatinine Ratio Ur 9.3 ug/mg cr (<30)
[2024-04-24 17:09] LABS: TSH reflex Free T4 0.92 uIU/mL (0.32-4.0)
[2024-04-24 17:13] LABS: Free T4 (Free Thyroxine) 0.64 ng/dL (0.71-1.85); T4 Thyroxine 3.9 ug/dL (4.5-12.0); Thyroid Stimulating Hormone 0.96 uIU/mL (0.32-4.0)
[2024-04-25 07:24] LABS: Triiodothyronine T3 Free 2.1 pg/mL (2.3-4.2); Triiodothyronine T3 Total 66 ng/dL (76-181)
[2024-04-25 08:19] LABS: HBc Num1 0.16 S/CO (0.00-0.79); HBsAGNum1 0.42 S/CO (0.00-0.99); HIV AB/AG Nonreactive (Nonreactive); HIV Num 1 0.04 S/CO (0.00-0.99); Hepatitis B Core Antibody Nonreactive (Nonreactive); Hepatitis B Surface Antigen Negative (Negative); ~HepC Num1 0.17 S/CO (0.00-0.79); ~Hepatitis B Surface Antibody REACTIVE (Nonreactive); ~Hepatitis C Antibody Nonreactive (Nonreactive)
[2024-04-25 08:41] LABS: Hepatitis A Antibody IgG REACTIVE (Nonreactive); ~Hepatitis A Antibody IgG 6.06 S/CO (0.00-0.99)
[2024-04-25 09:09] LABS: Thyroid Peroxidase Antibodies <1 IU/mL (<9)
== END 2024-04-24 15:18 | disposition home or self-care (01) ==
LOC: HO.HHCL 15:17
PROVIDERS: Internal Medicine; PCP Family Medicine; Visit Provider Family Medicine
DX: M17.11 Unilateral primary osteoarthritis, right knee (principal); G89.29 Other chronic pain; R79.89 Other specified abnormal findings of blood chemistry; R74.01 Elevation of levels of liver transaminase levels; Z79.4 Long term (current) use of insulin; E11.65 Type 2 diabetes mellitus with hyperglycemia
CPT/HCPCS: 36415; 73562; 80048; 80076; 82043; 82570; 84436; 84439; 84443; 84480; 84481; 86376; 86704; 86706; 86708; 86803; 87340; 87389

== ENCOUNTER → 2024-04-24 16:06 | Outpatient (BNV) | payer OTHER, SELFPAY | PROVIDERS: PCP Family Medicine; Visit Provider Radiology Diagnostic Radiology | DX: M17.11 Unilateral primary osteoarthritis, right knee (principal); D16.21 Benign neoplasm of long bones of right lower limb | CPT/HCPCS: 73562 ==

== ENCOUNTER 2024-05-21 09:47 | Outpatient (REF) | payer OTHER, SELFPAY ==
--- NOTE | ~2024-05-21 | US_ITS ---
EXAMINATION: US COMPLETE ABDOMEN WITH LIVER ELASTOGRAPHY CLINICAL INFORMATION: Elevated liver enzymes. MASLD. COMPARISON: 06/25/2021, 12/31/2019. TECHNIQUE: Real-time imaging of the abdominal viscera. Noninvasive ultrasound liver fibrosis assessment is performed using Donnie ElastPQ point quantification shear wave elastography (pSWE) with a C5-2 MHz transducer. Multiple elastography samples are obtained. FINDINGS: PANCREAS: The visualized pancreatic head and body are normal in appearance. The remainder of the pancreas is obscured from visualization by the overlying bowel gas. ABDOMINAL AORTA: No aortic aneurysm is seen. INFERIOR VENA CAVA: Visualized portions are normal. LIVER: Liver is mildly enlarged. There is diffusely increased echogenicity without focal lesions seen. There is a normal hepatic contour. The right lobe measures 18.1 cm in length. The left lobe measures 13.5 cm in length. Portal flow is hepatopedal. Shear wave liver elastography median stiffness is 1.58 m/s (reference: normal median stiffness is 1.3 m/s or less). (Previously measured 1.9 m/s). IQR/median stiffness to assess sampling precision is 0.17 (reference: good quality data set is IQR/median stiffness of 0.15 or less). GALLBLADDER: The gallbladder is physiologically distended without evidence of stones, sludge, polyps, wall thickening or pericholecystic fluid. COMMON BILE DUCT: Normal in caliber measuring 0.2 cm in diameter. RIGHT KIDNEY: No hydronephrosis. No renal calculi or suspicious focal parenchymal lesions. The kidney measures 11.4 cm in maximum dimension. Simple midpole lateral cyst measuring 1.1 cm. Smaller mid pole cyst measuring 1.0 cm. LEFT KIDNEY: No hydronephrosis. No renal calculi or suspicious focal parenchymal lesions. The kidney measures 12.5 cm in maximum dimension. Mid pole simple cyst measuring 1.8 cm. SPLEEN: Unremarkable. The spleen measures 13.7. cm in maximum dimension. FREE FLUID: None seen. US/US abdomen comp w elastography IMPRESSION: 1. Mild hepatic enlargement, with diffusely increased hepatic echogenicity, consistent with steatosis. Cannot exclude underlying hepatocellular disease. No suspicious focal lesion. 2. Liver elastography: Although measurements appear to rule out compensated advanced chronic liver disease, there is statistical variability of the sampling which decreases accuracy. When compared with prior exam, there is a statistically significant decrease in liver stiffness (decrease at least 10%) although current data may be unreliable. 3. There are bilateral simple renal cysts. 4. Remainder of the examination is normal. REFERENCE: Society of Radiologists in Ultrasound Liver Stiffness Thresholds (2020): LIVER STIFFNESS THRESHOLDS: *Liver Stiffness equal or less than 1.3 m/s: High probability of being normal. *Liver Stiffness less than 1.7 m/s: In the absence of other known clinical signs, rules out compensated advanced chronic liver disease. *Liver Stiffness 1.7-2.1 m/s: Suggestive of compensated advanced chronic liver disease but need further test for confirmation. *Liver Stiffness over 2.1 m/s: Rules in compensated advanced chronic liver disease. *Liver Stiffness over 2.4 m/s: Suggestive of clinically significant portal hypertension. QUALITY OF DATA SET: *IQR/Median value equal or less than 0.15 implies a quality data set. *IQR/Median value over 0.15 implies a poor quality data set. SIGNIFICANT CHANGE FROM PRIOR EXAM: Significant change if liver stiffness measurement is 10% or greater from prior exam. OTHER CONSIDERATIONS: The stage of liver fibrosis may be overestimated in the setting of acute hepatitis, liver inflammation, elevated liver function tests, hepatic vascular congestion, obstructive cholestasis, non-fasting state, and infiltrative diseases such as amyloidosis and lymphoma. In some patients with NAFLD, the liver stiffness thresholds for compensated advanced chronic liver disease may be lower. In causes other than viral hepatitis and NAFLD, liver stiffness thresholds are not well established. Electronically signed by: Aguilar Hagan MD 05/22/2024 10:13 AM [facility]
--- OUTSIDE RECORDS SUMMARY | 2024-05-21 09:49 | XMS_ITS | Encounter Summary ---
Author Organization [employer] Address [address] [place] [address] [address] [place] [address] Care Team Providers Care Fruit Bar Maker Name Role Phone Linda Lucas MD Primary Care Provider [phone] Emile Brambila PharmD Unavailable Reason for Referral * Consultation (Routine) - Authorized Specialty Diagnoses / Procedures Referred By Stacy fernandez Referred To Contact Pharmacy Diagnoses Type 2 diabetes mellitus with hyperglycemia, with long-term current use of insulin (CMS/HCC) Linda Lucas MD [address] [place] [address] Phone: tel: fax: Referral ID Status Reason Start Date Expiration Date Visits Requested Visits Authorized [id number] Authorized Consult and Treat 01/03/2024 01/02/2025 6 6 Encounter Details Date Type Department Care Team (Late st Contact Info) Description 01/03/2024 Orders Only [facility] [address] [place], [place] [id number] Linda Lucas MD [address] [place], [place] [phone] Type 2 diabetes mellitus with hyperglycemia, with long-term current use of insulin (CMS/HCC) (Primary Dx) Social History Tobacco Use Types Packs/Day Years Used Date Smoking Tobacco: Former Cigarettes Q uit: 05/05/2023 Smokeless Tobacco: Never Comments:Patient was an occa sional social smoker Quit 05/2023 Alcohol Use Standard Drinks/Week Comments Yes 0 (1 standard drink = 0.6 oz pur e alcohol) oca Depression Answer Date Recorded Patient Health Questionnaire-9 Score 7 07/05/2022 Housing Stability Answer Date Recorded What is your housing situation today? I have cassy lew 01/18/[address] you li ve. Do you have problems with any of the following? I am not sure 01/18/2023 Food Insecurity Answer Date Recorded Within the past 12 months, y ou worried that your food would run out before you got money to buy more: Never True 01/18/2023 Within the past 12 months,th e food you bought just didn't last and you didn't have enough money to get more: Never True Transportation Answer Date Recorded In the past 12 months, has l ack of transportation kept you from medical appts, meetings, work or from getting things needed for daily living? No 01/18/2023 Utilities Answer Date Recorded In the past 12 months, has t he electric, gas, oil or water company threatened to shut off services in your home? No 01/18/2023 Depression Answer Date Recorded Patient Health Questionnaire-2 Score 2 07/05/2022 Sex and Gender Information Value Date Recorded Sex Assigned at Male 02/01/2022 10:14 AM EDT Legal Sex Male 10:14 AM EDT Gender Identity Male 02/01/2022 10:14 AM EDT Sexual Orientation Choose not to disclose 2021 10:14 AM EDT documented as of this encounter Plan of Treatment Scheduled Referrals Name Type Priority Associated Diagnoses Orde r Schedule Referral to Pharmacy CDTM Outpatient Referral Routine Type 2 diabetes mellitus with hyperglycemia, with long-term current use of insulin (CMS/HCC) Ordered: 01/03/2024 documented as of this encounter Goals Goal Patient Goal Type Associated Problems Recent Progress Patient-Stated? Author Blood Pressure < 140/90 Blood Pressure 144/94( 025 2:30 PM EST) Emile Babin, PharmD documented as of this encounter Visit Diagnoses Diagnosis Type 2 diabetes mellitus with hyperglycemia, with long-term current use of insulin (CMS/[facility])- Primary documented in this encounter Additional Health Concerns Assessment Noted Time PHQ-9 Depression Total Score: 7 04/03/20 23 3:08 PM EDT documented as of this encounter Care Teams Fruit Bar Maker Relationship Specialty Start Date End Date Linda Lucas MD [address] [place] [address] PCP - General Family Medicine 04/04/18 Emile Brambila, CabreraD [address] [place] [address] Pharmacist Internal Medicine 07/12/22 documented as of this encounter
--- OUTSIDE RECORDS SUMMARY | 2024-05-21 09:50 | XMS_ITS | Encounter Summary ---
Author Organization [facility] Address [address] [place] [address] [address] [place] [address] Care Team Providers Care Drapery Rod Assembler Name Role Phone Linda Lucas MD Primary Care Provider [phone] Emile Brambila PharmD Unavailable [phone] Encounter Details Date Type Department Care Team (Late st Contact Info) Description 03/17/2022 [facility] Only [place] [address] [place], [place] [phone] Linda Lucas MD [address] [place], [place] [phone] Social History Tobacco Use Types Packs/Day Years Used Date Smoking Tobacco: Never Assessed Sex and Gender Information Value Date Recorded Sex Assigned at Male 02/01/2022 10:14 AM EDT Legal Sex Male 10:14 AM EDT Gender Identity Male 02/01/2022 10:14 AM EDT Sexual Orientation Choose not to disclose 2021 10:14 AM EDT COVID-19 Exposure Response Date Recorded In the last 10 days, have yo u been in contact with someone who was confirmed or suspected to have Coronavirus/COVID-19? No / Unsure 03/15/2022 3:16 PM EST documented as of this encounter Plan of Treatment Not on file documented as of this encounter Visit Diagnoses Not on filedocumented in this encounter Care Teams Drapery Rod Assembler Relationship Specialty Start Date End Date Linda Lucas MD [address] [place], [place] [phone] PCP - General Family Medicine 04/04/18 Emile Brambila, PharmD [address] [place] [id number] Pharmacist Internal Medicine 07/12/22 documented as of this encounter
--- OUTSIDE RECORDS SUMMARY | 2024-05-21 09:50 | XMS_ITS | Clinical Summary ---
Author Organization [facility] Address [address] [place] [address] Phone Care Team Providers Care Stacker Name Role Phone Unavailable Primary Care Provider Unavailabl e Allergies No known active allergies Encounters Date Type Department Care Team Description 04/06/2024 2:00 PM EST - 04/06/2024 8:14 PM EST Emergency [facility] Emergency [address] [place] [address] Discharge Disposition: Home or Self Care from Last 3 Months Social History Tobacco Use Types Packs/Day Years Used Date Smoking Tobacco: Never Assessed Sex and Gender Information Value Date Recorded Sex Assigned at Not on file Legal Sex Male 5:36 AM EST Gender Identity Not on file Sexual Orientation Not on file Last Filed Vital Signs Vital Sign Reading Time Taken Comments Blood Pressure 150/100 04/06/2024 2:21 PM EST Pulse 70 04/06/2024 2:21 PM EST Temperature 36.6 ??C (97.9 ??F) 04/06/2024 2:21 PM ES T Respiratory Rate 18 04/06/2024 2:21 PM EST Oxygen Saturation 98% 04/06/2024 2:21 PM EST Inhaled Oxygen Concentration - - Weight 133 kg (294 lb) 04/06/2024 2:21 PM EST Height 185.4 cm (6' 1 ) 04/06/2024 2:21 PM EST Body Mass Index 38.79 04/06/2024 2:21 PM EST Plan of Treatment Health Maintenance Due Date Last Done Comments Diabetes: Annual GFR (Glomerular Filtration Rate) 1970 Diabetes: Annual Foot Exam 1980 Diabetes: Annual Retina Eye Exam 1980 Cholesterol Screening (Lipid Panel) 05/03/2023 Colorectal Cancer Screening: Colonoscopy 05/03/2023 HIV Screening 05/03/2023 Hepatitis C Screening 05/03/2023 Social Influencers of Health Screening 05/03/2023 Depression Screening 07/06/2023 07/05/2022 Diabetes: Annual Urine Albumin-Creatinine Ratio (uACR) 01/31/2024 Hypertension/CHF/CAD Annual BMP Blood Test 04/06/2024 Diabetes: Blood Sugar Control Test (HGBA1C) 07/01/2024 01/02/2024 DTaP,Tdap,and Td Vaccines (3 - Td or Tdap) 12/04/2031 12/03/2021, 12/02/2011 Hepatitis A Vaccines Completed 02/20/2019, 09/10/19 Hepatitis B Vaccines Completed 02/20/2019, 06/17/2015, 09/09/2014 Zoster Vaccines Completed 01/14/2022, 11/11/2021 Pneumococcal Vaccine: 50+ Years Completed 07/05/2022 Pneumococcal Vaccine: Pediatrics (0 to 5 Years) and At-Risk Patients (6 to 64 Years) Completed 07/05/2022 COVID-19 Vaccine Completed 02/08/2024, 06/2021, 06/03/2020, Additional history exists Influenza Vaccine Completed 02/08/2024, , 02/20/2019, Additional history exists HIB Vaccines Aged Out No longer eligi ble based on patient's age to complete this topic HPV Vaccines Aged Out No longer eligi ble based on patient's age to complete this topic IPV Vaccines Aged Out No longer eligi ble based on patient's age to complete this topic MMR Vaccines Aged Out No longer eligi ble based on patient's age to complete this topic Meningococcal ACWY Vaccine Aged Out N o longer eligible based on patient's age to complete this topic Meningococcal B Vacine Aged Out No lo nger eligible based on patient's age to complete this topic RSV Immunization Patients Under 20 months Aged Out No longer eligible based on patient's age to complete this topic Varicella Vaccines Aged Out No longer eligible based on patient's age to complete this topic Insurance MEDICAID - [place]
--- OUTSIDE RECORDS SUMMARY | 2024-05-21 09:50 | XMS_ITS | Encounter Summary ---
Author Organization [employer] Address [address] [facility] [address] [place] [address] Care Team Providers Care Principal Trainer Name Role Phone Linda Lucas MD Primary Care Provider [phone] Emile Brambila PharmD Unavailable [phone] Encounter Details Date Type Department Care Team (Latest Contact Info) Description 04/24/2024 Travel Social History Tobacco Use Types Packs/Day Years Used Date Smoking Tobacco: Former Cigarettes Q uit: 05/05/2023 Passive Smoke Exposure: Past Smokeless Tobacco: Never Comments:Patient was an occa sional social smoker Quit 05/2023 Alcohol Use Standard Drinks/Week Comments Yes 0 (1 standard drink = 0.6 oz pur e alcohol) oca Alcohol Answer Date Recorded Frequency of Alcohol Consumption Not on file 02/08/2024 Average Number of Drinks Not on file 024 Frequency of Binge Drinking Not on file 09/2023 Score 0 02/08/2024 Depression Answer Date Recorded Patient Health Questionnaire-9 Score 6 04/25/2024 Patient Health Questionnaire-9 Score 6 04/25/2024 Last PHQ-9: Questionnaire Data Not on file 0 04/25/2024 Housing Stability Answer Date Recorded What is [...] Date Recorded Patient Health Questionnaire-2 Score 2 04/25/2024 Sex and Gender Information Value Date Recorded Sex Assigned at Male 02/01/2022 10:14 AM EDT Legal Sex Male 10:14 AM EDT Gender Identity Male 02/01/2022 10:14 AM EDT Sexual Orientation Choose not to disclose 2021 10:14 AM EDT documented as of this encounter Plan of Treatment Not on file documented as of this encounter Goals Goal Patient Goal Type Associated Problems Recent Progress Patient-Stated? Author Blood Pressure < 140/90 Blood Pressure 144/94(2024 2:30 PM EST) No Emile Brambila PharmD Hemoglobin A1c < 7 Result Component 7.6( 2:36 PM EST) No Emile Brambila PharmD documented as of this encounter Visit Diagnoses Not on filedocumented in this encounter Additional Health Concerns Assessment Noted Time PHQ-9 Depression Total Score: 7 07/06/19 23 3:08 PM EDT documented as of this encounter Care Teams Principal Trainer Relationship Specialty Start Date End Date Linda Lucas MD [address] [place] [address] PCP - General Family Medicine 04/04/18 Emile Brambila PharmD [address] [place] [address] Pharmacist Internal Medicine 07/12/22 documented as of this encounter
--- OUTSIDE RECORDS SUMMARY | 2024-05-21 09:50 | XMS_ITS | Clinical Summary ---
Author Organization [employer] Address [address] [place] [address] Care Team Providers Care Tripoler Name Role Phone Linda Luacs MD Primary Care Provider [phone] Emile Brambila PharmD Unavailable [phone] Allergies No known active allergies Medications Blood Pressure kitIndications: Primary hypertension Use daily as directed 1 kit 02/04/20 23 Active albuterol 108 (90 Base) MCG/ACT inhalerIndicati ons:Acute cough,Asthma, unspecified asthma severity, unspecified whether complicated, unspecified whether persistent INHALE 2 PUFFS BY MOUTH EVERY 4 TO 6 HOURS NEEDED 8.5 g 10/14/19 24 Active gabapentin (Neurontin) 300 MG capsule TAKE 1 CAPSULE BY MOUTH AT BEDTIME FOR PAIN 30 capsule 11 10/18/[address] 500 MG tablet delayed-release TAKE 1 TABLET BY MOUTH TWICE DAILY WITH FOOD NEEDED 60 tablet 1 11/07/19 24 Active lisinopril 40 MG tabletIndicatio ns:Primary hypertension Take 1 tablet by mouth once daily 90 tablet 1 12/20/19 24 Active Insulin Pen Needle (pen needle 06/17 ) 31G x 5 mm misc Use 1x/day 100 each 12 01/03/20 24 025 Active Alcohol Swabs (Alcohol Prep) pads Check blood sugar three times daily before meals and as needed 100 each 01/03/20 24 Active FreeStyle lancets 1 each by Other route before breakfast, before lunch, and before evening meal. Check blood glucose 100 each 11 01/03/20 24 Active rosuvastatin (Crestor) 5 MG tablet Take 1 tablet (5 mg) by mouth Once per day. 90 tablet 3 01/09/20 24 Active glucose blood (FreeStyle Precision Jasiel Test) test stripIndication s:Type 2 diabetes mellitus with hyperglycemia, with long-term current use of insulin ([facility]) Use to test blood sugar 3 times daily as needed 100 each 11 01/25/20 24 025 Active Continuous Glucose Lime Slaker (FreeStyle Cristopher 2 Mitchell) deviceIndicatio ns:Type 2 diabetes mellitus with hyperglycemia, with long-term current use of insulin ([facility]) Scan sensor every 8 hours 1 each 01/25/20 24 Active Continuous Glucose Sensor (FreeStyle Crisotpher 2 Sensor) miscIndications :Type 2 diabetes mellitus with hyperglycemia, with long-term current use of insulin ([facility]) Apply 1 sensor every 14 days 2 each 11 01/25/20 24 Active polyethylene glycol, PEG, 3350 (HealthyLax) 17 g packetIndicatio ns:Abdominal bloating DISSOLVE 1 PACKET IN 8 OUNCES OF WATER, COFFEE, OR TEA AND TAKE BY MOUTH TWICE DAILY 20 packet 3 02/02/20 24 Active ciclopirox (Penlac) 8 % solution Apply topically at bedtime. 6 mL 2 02/13/20 24 Active aspirin-acetami nophen-caffeine (Excedrin Migraine) 250-250-65 MG tablet Take 1 tablet by mouth every 6 (six) hours if needed for headaches. Active aspirin 81 MG EC tablet Take 1 tablet (81 mg) by mouth Once per day. 90 tablet 3 03/08/20 24 025 Active Icosapent Ethyl (Vascepa) 1 g capsule Take 2 capsules (2 g) by mouth with breakfast and with evening meal. 360 capsule 3 03/08/20 24 025 Active fluticasone (Flonase) 50 MCG/ACT nasal sprayIndication s:Allergic rhinitis, unspecified seasonality, unspecified trigger INSTILL 1-2 SPRAYS IN EACH NOSTRIL ONCE DAILY IN THE MORNING 16 g 2 04/24/19 25 Active chlorthalidone (Hygroton) 25 MG tabletIndicatio ns:Primary hypertension Take 1 tablet by mouth every morning 90 tablet 3 04/24/19 25 Active amLODIPine (Norvasc) 2.5 MG tablet Take 2 tablets (5 mg) by mouth Once per day. 60 tablet 11 04/24/19 25 026 Active semaglutide (Ozempic) 2 MG/1.5ML solution pen-injector Inject 0.25 mg under the skin 1 (one) time per week. 1 each 04/24/19 Active metFORMIN XR (Glucophage-XR) 500 MG 24 hr tablet Take 1 tablet (500 mg) by mouth with evening meal. Do not crush, chew, or split. 180 tablet 3 04/28/19 Active insulin glargine (Lantus SoloStar) 100 UNIT/ML penIndications: Type 2 diabetes mellitus with hyperglycemia, with long-term current use of insulin (CMS/HCC) Inject 12 units under the skin once daily 15 mL 5 04/28/19 25 Active fluticasone (Flonase) 50 MCG/ACT nasal sprayIndication s:Allergic rhinitis, unspecified seasonality, unspecified trigger INSTILL 1-2 SPRAYS IN EACH NOSTRIL ONCE DAILY IN THE MORNING SHAKE GENTLY 16 g 2 12/12/19 24 025 Discontinued insulin glargine (Lantus SoloStar) 100 UNIT/ML penIndications: Type 2 diabetes mellitus with hyperglycemia, with long-term current use of insulin (CMS/HCC) Inject 16 units under the skin once daily 15 mL 5 01/23/20 24 025 Discontinued(Re order (will not trigger notification to Pharmacy)) chlorthalidone (Hygroton) 25 MG tabletIndicatio ns:Primary hypertension Take 1 tablet by mouth every morning 90 tablet 3 01/23/20 24 025 Discontinued(Re order (will not trigger notification to Pharmacy)) metFORMIN (Glucophage) 500 MG tabletIndicatio ns:Type 2 diabetes mellitus with hyperglycemia, with long-term current use of insulin (CMS/HCC) Take 1 tablet by mouth twice daily with meals 60 tablet 5 01/23/20 24 025 Discontinued Active Problems Problem Noted Date Diagnosed Date Dyslipidemia 04/28/2024 Assessment & Plan (04/28/2024 7:28 AM EST): - history of elevated CK and transaminitis - continue rosuvastatin 5 mg at bedtime - continue working on lifestyle modifications Hypertriglyceridemia 04/28/2024 Assessment & Plan (04/28/2024 7:29 AM EST): - continue working on lifestyle modifications - continue icosapent ethyl Low TSH level 04/28/2024 Chronic pain of right knee 04/28/2024 Assessment & Plan (04/28/2024 7:35 AM EST): -Previously followed by orthopedist. 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, Recommended to use brace for stability and recommended as candidate for MPFL reconstructive surgery but did not f/u for further evaluation in Mar 2017 -Received euflexxa injection in 2019 from orthopedist -Continue acetaminophen and naproxen prn -Continue knee brace -[place] [facility] [place] Hearing loss 02/08/2024 Blurry vision, left eye 02/08/2024 Diabetes mellitus, type 2 02/07/2024 Assessment & Plan (04/28/2024 7:25 AM EST): - Dx in January 2024, with elevated RBG and A1C 11.2% - A1C 7.6% today, improving with insulin - continue basal insulin, currently 16 units, decrease to 12 units once he starts Semaglutide - continue metformin 1 g bid, consider switching to long-acting and titrating up the dose - start GLP1RA,, either semaglutide 0.25 mg weekly or tirzeptide - continue lifestyle modifications - Eye exam: within last 1 year, will refer for diabetic eye exam - Foot exam: 02/08/24, decreased sensation of the feet most likely due to callus - Last lipid profile: 01/02/24 - Microalbumin: not done Assessment & Plan (02/08/2024 12:39 PM EST): - newly diagnosed in January 2024 - A1C 11.2% on 01/02/24 - started on lantus insulin - continue current medication, consider adding GLP1-RA - continue lifestyle modifications - Eye exam: within last 1 year, will refer for diabetic eye exam - Foot exam: 02/08/24, decreased sensation of the feet most likely due to callus - Last lipid profile: 01/02/24 - Microalbumin: not done GERD (gastroesophageal reflux disease) Assessment & Plan (01/09/2024 9:14 AM EDT): - optimize treatment for chronic metabolic conditioins - improve diet - omeprazole prn Asthma 05/05/2023 Seizure disorder 07/05/2022 Assessment & Plan (04/24/2024 2:48 PM EST): - previously seen by Dr. Parisi, pt missed several follow-up appts - currently seeing Dr. Guadarrama, last seen on 03/15/22 - last seizure in 2005 - continue gabapentin 300 mg tid - advised patient to call Neurology Office to ask about an appointment Assessment & Plan (10/04/2022 3:30 PM EDT): - previously seen by Dr. Parisi, pt missed several follow-up appts - currently seeing Dr. Guadarrama, last seen on 03/15/22 - last seizure in 2005 - continue gabapentin 300 mg tid - advised patient to call Neurology Office to ask about an appointment Assessment & Plan (07/16/2022 6:21 PM EDT): - previously seen by Dr. Parisi, pt missed several follow-up appts - currently seeing Dr. Guadarrama, last seen on 03/15/22 - last seizure in 2005 - continue gabapentin 300 mg tid Tubular adenoma of colon 03/15/2022 Overview (03/15/2022): ?? 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 Parisi in Dec 2017, did not follow-up for EEG. --His impression was seizure d/o and CIDP -NCT/EMG on 11/04/17 was consistent with diffuse demyelinating more than axonal, sensory-motor peripheral neuropathy in the lower extremities, suggestive of CIDP. EMG of the right L3-S1 innervated muscles shows evidence of minimal distal chronic denervating changes of neuropathy. -Seen by [facility] neurology service, last seen on 03/15/22 -NCT/EMG on consistent with CIDP -being scheduled for IV Ig 400 mg/kg/d x 5 doses, then repeat EMG/NCT 1 mo after treatment -advised to contact [facility] neurology regarding to the treatment Assessment & Plan (02/08/2024 12:31 PM EST): -Seen by Dr. Parisi in Dec 2017, did not follow-up for EEG. --His impression was seizure d/o and CIDP -NCT/EMG on 11/04/17 was consistent with diffuse demyelinating more than axonal, sensory-motor peripheral neuropathy in the lower extremities, suggestive of CIDP. EMG of the right L3-S1 innervated muscles shows evidence of minimal distal chronic denervating changes of neuropathy. -Seen by [facility] neurology service, last seen on 03/15/22 -NCT/EMG on consistent with CIDP -being scheduled for IV Ig 400 mg/kg/d x 5 doses, then repeat EMG/NCT 1 mo after treatment -advised to contact [facility] neurology regarding to the treatment Assessment & Plan (01/03/2024 9:37 AM EDT): -Seen by Dr. Parisi in Dec 2017, did not follow-up for EEG. --His impression was seizure d/o and CIDP -NCT/EMG on 11/04/17 was consistent with diffuse demyelinating more than axonal, sensory-motor peripheral neuropathy in the lower extremities, suggestive of CIDP. EMG of the right L3-S1 innervated muscles shows evidence of minimal distal chronic denervating changes of neuropathy. -Seen by [facility] neurology service, last seen on 03/15/22 -NCT/EMG on consistent with CIDP -being scheduled for IV Ig 400 mg/kg/d x 5 doses, then repeat EMG/NCT 1 mo after treatment -advised to contact [facility] neurology regarding to the treatment Assessment & Plan (07/16/2022 6:23 PM EDT): -Seen by Dr. Parisi in Dec 2017, did not follow-up for EEG. --His impression was seizure d/o and CIDP -NCT/EMG on 11/04/17 was consistent with diffuse demyelinating more than axonal, sensory-motor peripheral neuropathy in the lower extremities, suggestive of CIDP. EMG of the right L3-S1 innervated muscles shows evidence of minimal distal chronic denervating changes of neuropathy. -Seen by [facility] neurology service, last seen on 03/15/22 -NCT/EMG on consistent with CIDP -being scheduled for IV Ig 400 mg/kg/d x 5 doses, then repeat EMG/NCT 1 mo after treatment -advised to contact [facility] neurology regarding to the treatment Assessment & Plan (03/19/2022 11:48 AM EST): -Seen by Dr. Parisi in Dec 2017, did not follow-up for EEG. --His impression was seizure d/o and CIDP -NCT/EMG on 11/04/17 was consistent with diffuse demyelinating more than axonal, sensory-motor peripheral neuropathy in the lower extremities, suggestive of CIDP. EMG of the right L3-S1 innervated muscles shows evidence of minimal distal chronic denervating changes of neuropathy. -Seen by [facility] neurology service, last seen on 12/29/21. --Neurologist's plan was to repeat NCT/EMG. Vitamin D deficiency 12/21/2017 Assessment & Plan (01/09/2024 9:13 AM EDT): - check lab Increased creatine kinase level 10/10/2017 Metabolic dysfunction-associ ated steatotic liver disease (MASLD) 11/12/2014 Assessment & Plan (04/28/2024 7:19 AM EST): -Followed by [facility], last seen in Dec 2021 -Most recent US in September 2022 -Most recent lab on 01/02/24, ALT 111; AST 64; AlkPhos 72; GGT 54 -FIB4 index: 2.09, indeterminate -Avoid hepatotoxic drugs. -f/u with GI, pt was advised to contact office for next f/u appt - will update US Assessment & Plan (02/08/2024 12:40 PM EST): -Followed by [facility], last seen in Dec 2021 -Most recent US in September 2022 -Most recent lab on 01/02/24, ALT 111; AST 64; AlkPhos 72; GGT 54 -Avoid hepatotoxic drugs. -f/u with GI, pt was advised to contact office for next f/u appt - will update US Assessment & Plan (01/03/2024 9:39 AM EDT): -Followed by [facility], last seen in Dec 2021 -Most recent US in September 2022 -Most recent lab ALT 84; AST 64; AlkPhos 72; GGT 54 -Avoid hepatotoxic drugs. -f/u with GI, pt was advised to contact office for next f/u appt Assessment & Plan (10/04/2022 3:32 PM EDT): -Followed by [facility], last seen in Dec 2021 -Most recent US in September 2022 -Most recent lab ALT 84; AST 64; AlkPhos 72; GGT 54 -Avoid hepatotoxic drugs. -f/u with GI, pt was advised to contact office for next f/u appt Assessment & Plan (07/16/2022 6:45 PM EDT): -Followed by [facility], last seen in Dec 2021 -Most recent US in June 2021. -Most recent lab ALT 84; AST 64; AlkPhos 72; GGT 54 -Avoid hepatotoxic drugs. -f/u with GI, pt was advised to contact office for next f/u appt Assessment & Plan (03/19/2022 11:52 AM EST): -Followed by [facility], last seen in Dec 2021 -Most recent US in June 2021. -Most recent lab ALT 84; AST 64; AlkPhos 72; GGT 54 -Avoid hepatotoxic drugs. -f/u with GI, pt was advised to contact office for next f/u appt Allergic rhinitis 11/08/2013 Obstructive sleep apnea syndrome 10/26/2012 Assessment & Plan (04/24/2024 2:49 PM EST): - last sleep study done in January 2024 - will send a new CPAP machine order Assessment & Plan (02/08/2024 12:32 PM EST): - last sleep study done in January 2024 - will send a new CPAP machine order Assessment & Plan (01/09/2024 8:58 AM EDT): - last sleep study done in 2012 - pt has CPAP machine, but does not have a new mask - will order a new sleep study so that he can get a new mask Assessment & Plan (05/06/2023 9:16 AM EST): Using it Only for few hours at night as he doesn't tolerate face mask All night I told him to contact supplier to get a nasal mask or smaller face mask fitted Patient needs to use CPAP to decrease morbidity and mortality Assessment & Plan (10/05/2022 12:57 PM EDT): - last sleep study done in 2012 - pt has CPAP machine, but does not have a new mask - will order a new sleep study so that he can get a new mask Assessment & Plan (07/16/2022 6:39 PM EDT): - pt has CPAP machine, but does not have a new mask - will request a new mask Hypertension 07/24/2012 Assessment & Plan (04/28/2024 7:17 AM EST): -Goal BP <140/90 per JNC-8, < 130/80 per ACC/AHA guideline -BP not at goal today, elevated at home as well -Co-managed with our pharmacist -Discussed about the importance of lifestyle modifications and medication adherence. -Continue chlorthalidone 25 mg daily -Continue lisinopril to 40 mg daily -Add amlodipine 2.5 mg daily -Advised to check home BP everyday; may need an additional teaching -Not adherent to CPAP machine due to mask. Waiting for a new mask to use Assessment & Plan (02/08/2024 12:32 PM EST): -Goal BP <140/90 per JNC-8, < 130/80 per ACC/AHA guideline -BP at goal today -Co-managed with our pharmacist -Discussed about the importance of lifestyle modifications and medication adherence. -Continue chlorthalidone 25 mg daily -Continue lisinopril to 40 mg daily -Advised to check home BP everyday; may need an additional teaching -Not adherent to CPAP machine due to mask. Waiting for a new mask to use Assessment & Plan (01/09/2024 9:15 AM EDT): -Goal BP <140/90 per JNC-8, < 130/80 per ACC/AHA guideline -BP not at goal -Co-managed with our pharmacist -Discussed about the importance of lifestyle modifications and medication adherence. -Continue chlorthalidone 25 mg daily -Continue lisinopril to 40 mg daily -Advised to check home BP everyday; may need an additional teaching -Not adherent to CPAP machine due to mask. Waiting for a new mask to use Assessment & Plan (05/05/2023 9:36 AM EST): Uncontrolled today, tells me he did not take meds or using CPAP Told him to take meds as soon as he gets home Counseled to use CPAP, he will call CPAP supplier to have a mask fitting Assessment & Plan (10/04/2022 3:32 PM EDT): -Goal BP <140/90 per JNC-8, < 130/80 per ACC/AHA guideline -BP at goal -Discussed about the importance of lifestyle modifications and medication adherence. -Continue chlorthalidone 25 mg daily -Continue lisinopril to 10 mg daily -Advised to check home BP everyday; may need an additional teaching -Not adherent to CPAP machine due to mask. Waiting for a new mask to use -Pt had first CDTM appt and missed the follow-up appt. Pt was reminded about CDTM appt today. Assessment & Plan (03/19/2022 11:51 AM EST): -Goal BP <140/90 per JNC-8, < 130/80 per ACC/AHA guideline -BP not at goal, questionable medication adherence and CPAP adherence -Discussed about the importance of lifestyle modifications and medication adherence. 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 Humalog 10 U stat. His BS after 30min was at 400s. I told him to get home, drink plenty of water and apply Lantus with next meal. Rx Lantus 15u/HS x 3d, if BS remains above 250, he will increase by 5U every 5d up to 25u/d and fu with PCP in 3-4w. We'll contact [facility] clinic to schedule a fu appt with him RN did education re insulin application, fingerstick check. We'll repeat labs prior to next appt with PCP as some of the lytes abn might have been corrected at the ED. Thyroid tests are to be repeated as well. Counseled re more frequent low calorie/carb meals. Check fgstk 2x daily Encouraged physical activity as tolerated. Subacute sinusitis 05/05/2023 Assessment & Plan (05/05/2023 9:36 AM EST): Rx for Zithromax that will also help with bronchial colonization Flonase + tylenol PRN Increase water intake and use nasal saline Acute cough 05/05/2023 01/02/2024 Assessment & Plan (05/05/2023 9:37 AM EST): Discuss w pt importance of increase water intake and avoid anti cough medicine I will Rx albuterol to allow for better bronchial dilatation given potential intercostal muscle weakness due to his polyneuropathy. Impaired fasting glucose 03/15/202204/2023 Assessment & Plan (01/03/2024 9:39 AM EDT): 01/08/22 A1C 6.2% Continue working on lifestyle modificatioins Annual or biannual diabetes screening Assessment & Plan (10/04/2022 3:22 PM EDT): 01/08/22 A1C 6.2% Continue working on lifestyle modificatioins Annual or biannual diabetes screening Assessment & Plan (07/16/2022 6:45 PM EDT): 01/08/22 A1C 6.2% Continue working on lifestyle modificatioins Annual or biannual diabetes screening Assessment & Plan (03/19/2022 11:53 AM EST): 01/08/22 A1C 6.2% Continue working on lifestyle modificatioins Annual or biannual diabetes screening Insomnia 12/02/2011 07/16/2022 Encounters Date Type Department Care Team Description 04/26/2024 Telephone [facility] [address] [place] [id number] Francisca Mac, RN Results 04/25/2024 Orders Only [facility] [address] [place] [address] Linda Lucas MD Metabolic dysfunction-associated steatotic liver disease (MASLD) (Primary Dx) 04/24/2024 1:00 PM EST Office Visit [facility] [address] [place] [address] Linda Lucas MD Type 2 diabetes mellitus with hyperglycemia, with long-term current use of insulin ([facility]) (Primary Dx); Primary hypertension; Obstructive sleep apnea syndrome; 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); Seizure disorder (CMS/HCC); Low TSH level; Chronic pain of right knee; Transaminitis; Metabolic dysfunction-associated steatotic liver disease (MASLD); Dietary counseling; Exercise counseling; Class 2 severe obesity due to excess calories with serious comorbidity and body mass index (BMI) of 39.0 to 39.9 in adult ([facility]); Dyslipidemia; Hypertriglyceridemia; Increased creatine kinase level; Traumatic arthropathy of knee, unspecified laterality 04/24/2024 Travel 04/21/2024 Refill [facility] [address] [place] [address] Linda Lucas MD Allergic rhinitis, unspecified seasonality, unspecified trigger 04/20/2024 Telephone [facility] [address] [place] [address] Norah Issa MA chart prep 03/08/2024 Orders Only [facility] [address] [place], [place] [id number] Linda Lucas MD 02/21/2024 Orders Only [facility] [address] [place] [phone] Bhakti Ferguson MD Primary hypertension (Primary Dx) 02/20/2024 Telephone [facility] [address] [place] [address] Linda Lucas MD from Last 3 Months Immunizations Name Administration Dates Next Due Hep A, Adult 02/20/2019,09/09/2014 Hep B, adult 02/20/2019,06/17/2015,09/09/2014 Influenza Injectable Quadriv alant Preservative Free IIV4 MDCK 01/14/2022 Influenza injectable quadriv alent preservative free 02/20/2019,06/17/2015,06/03/2014 Influenza, IIV3, injectable 12/09/2010, 0,04/26/2008 Influenza, Split (incl. anna fied surface antigen) 12/02/2011 Influenza, seasonal, injecta ble, preservative free 02/08/2024 Pfizer Covid-19 Vaccine 12+ 02/08/2024,0 08/04/2021,06/03/2020,2020 Pfizer Covid-19 Vaccine 12+ thaddeus-sucrose (Huerta Cap) 08/04/2021 Pneumococcal Conjugate PCV 20 07/05/2022 Tdap 12/03/2021,12/02/2011 Zoster, Recombinant 01/14/2022,11/11/2021 Social History Tobacco Use Types Packs/Day Years Used Date Smoking Tobacco: Former Cigarettes Q uit: 05/05/2023 Passive Smoke Exposure: Past Smokeless Tobacco: Never Tobacco Cessation:Counseling Given: Not Answered Comments:Patient was an occasional social smoker Quit 05/2023 Alcohol Use Standard [...] not to disclose 2021 10:14 AM EDT Last Filed Vital Signs Vital Sign Reading Time Taken Comments Blood Pressure 144/94 04/24/2024 2:30 PM EST Pulse 70 04/24/2024 2:30 PM EST Temperature 35.9 ??C (96.6 ??F) 04/24/2024 2:30 PM ES T Respiratory Rate 15 04/24/2024 2:30 PM EST Oxygen Saturation 98% 04/24/2024 2:30 PM EST Inhaled Oxygen Concentration - - Weight 137 kg (301 lb 12.8 oz) 04/24/2024 2:30 P M EST Height 185.4 cm (6' 1 ) 02/08/2024 11:57 AM EST Body Mass Index 39.82 02/08/2024 11:57 AM EST Plan of Treatment Health Maintenance Due Date Last Done Comments CT Colonography 1970 FIT DNA/Cologuard 1970 FIT 1970 FOBT 1970 Sigmoidoscopy 1970 Eye Exam 1980 SDOH Screening 07/06/2023 07/05/2022 Colonoscopy 03/26/2024 03/26/2021 Colorectal Cancer Screening 03/26/2024 Diabetes: Hemoglobin A1C 07/23/2024 025, 01/02/2024, 02/08/2023, Additional history exists Lipid Panel 01/01/2025 01/02/2024, 12/05, 02/08/2023 Alcohol/Substance Use Screening 02/07/2025 02/08/2024 Diabetes: Foot Exam 02/07/2025 02/08/2024, 02/08/2024, 02/08/2024, Additional history exists Diabetes: Urine Protein Screening 04/24/2025 04/24/2024 Tobacco Screening 04/24/2025 04/24/2024 Depression Screening 04/25/2025 04/25/2024, 04/25/19 25 DTaP/Tdap/Td Vaccines (3 - Td or Tdap) 12/04/2031 12/03/2021, 12/02/2011 RSV Patients and Patients Aged 60 years or older (1 - 1-dose 75+ series) 2045 Hepatitis A Vaccines Completed 02/20/2019, 09/10/19 Hepatitis B Vaccines Completed 02/20/2019, 06/17/2015, 09/09/2014 Zoster Vaccines Completed 01/14/2022, 11/11/2021 Pneumococcal Vaccine: 50+ Years Completed 07/05/2022 COVID-19 Vaccine Completed 02/08/2024, 06/2021, 08/04/2021, Additional history exists Influenza Vaccine Completed 02/08/2024, , 02/20/2019, Additional history exists HIV Screening Completed 04/24/2024 Hepatitis C Screening Completed 04/24/2024 , 02/22/2020, 02/22/2020 HIB Vaccines Aged Out No longer eligi ble based on patient's age to complete this topic HPV Vaccines Aged Out No longer eligi ble based on patient's age to complete this topic IPV Vaccines Aged Out No longer eligi ble based on patient's age to complete this topic Meningococcal Vaccine Aged Out No leander omi eligible based on patient's age to complete this topic RSV under 20 months Aged Out No longe r eligible based on patient's age to complete this topic Rotavirus Vaccines Aged Out No longer eligible based on patient's age to complete this topic Goals Goal Patient Goal Type Associated Problems Recent Progress Patient-Stated? Author Blood Pressure < 140/90 Blood Pressure 144/94(2024 2:30 PM EST) No Emile Brambila, PharmJaren Hemoglobin A1c < 7 Result Component 7.6( 2:36 PM EST) No Emile Brambila PharmD Procedures Procedure Name Priority Date/Time Associated Diagnosis Comments XR KNEE 3 VIEWS RIGHT Routine 04/25/2024 5:31 AM EST Chronic pain of right knee ALBUMIN, RANDOM URINE W/CREATININE Routine 04/24/2024 3:20 PM EST Type 2 diabetes mellitus with hyperglycemia, with long-term current use of insulin (CMS/HCC) HEPATITIS A ANTIBODY, TOTAL Routine 04/24/2024 3:20 PM EST Transaminitis HEPATITIS B SURFACE ANTIGEN, EIA Routine 04/24/2024 3:20 PM EST Transaminitis HIV 1/2 ANTIGEN/ANTIBODY, FOURTH GENERATION W/RFL Routine 04/24/2024 3:20 PM EST Transaminitis HEPATITIS B CORE AB TOTAL Routine 04/24/2024 3:20 PM EST Transaminitis HEPATITIS B SURFACE ANTIBODY, QUALITATIVE Routine 04/24/2024 3:20 PM EST Transaminitis HEPATITIS C AB W/REFL TO HCV RNA, QN, PCR Routine 04/24/2024 3:20 PM EST Transaminitis HEPATIC FUNCTION PANEL Routine 04/24/2024 3:20 PM EST Transaminitis TSH W/REFLEX TO FT4 Routine 04/24/2024 3 :20 PM EST Low TSH level THYROID PEROXIDASE ANTIBODIES Routine 04/24/2024 3:20 PM EST Low TSH level BASIC METABOLIC PANEL Routine 04/24/2024 3:20 PM EST Type 2 diabetes mellitus with hyperglycemia, with long-term current use of insulin (CMS/HCC) T4 (THYROXINE), TOTAL Routine 04/24/2024 3:20 PM EST Type 2 diabetes mellitus with hyperglycemia, with long-term current use of insulin (CMS/HCC) TSH Routine 04/24/2024 3:20 PM EST Type 2 diabetes mellitus with hyperglycemia, with long-term current use of insulin (CMS/HCC) T4, FREE Routine 04/24/2024 3:20 PM EST Type 2 diabetes mellitus with hyperglycemia, with long-term current use of insulin (CMS/[facility]) T3, TOTAL Routine 04/24/2024 3:20 PM EST Type 2 diabetes mellitus with hyperglycemia, with long-term current use of insulin (CMS/[facility]) T3, FREE Routine 04/24/2024 3:20 PM EST Type 2 diabetes mellitus with hyperglycemia, with long-term current use of insulin (CMS/[facility]) POCT GLYCOSYLATED HEMOGLOBIN (HGB A1C) Routine 04/24/2024 2:36 PM EST Type 2 diabetes mellitus with hyperglycemia, with long-term current use of insulin (CMS/[facility]) POCT GLUCOSE Routine 04/24/2024 2:36 PM EST Type 2 diabetes mellitus with hyperglycemia, with long-term current use of insulin (CMS/[facility]) LIPID PANEL WITH REFLEX TO DIRECT LDL Routine 01/02/2024 3:00 PM EDT Primary hypertension HM COLONOSCOPY Routine 03/26/2021 from Last 3 Months or Most Recently Relevant to Health Maintenance Results * XR Knee 3 Views Right (04/25/2024 5:31 AM EST) Anatomical Region Laterality Modality Lower Extremities, Knee Right [facility] 04/25/2024 5:31 AM EST Narrative 04/25/2024 5:33 AM EST ? [facility] ?[address] ?[place] [address] ?XRay Report ? Signed ? Patient: Corey,Paulie ?MR#: [id number] ?? [id number] ? : 1970 ?Acct:[id number] ? Age/Sex: 53 / M ?ADM Date: 01/21/25 ? Loc: HO.HHCL ? Attending Dr: Linda Lucas MD ? Ordering Physician: Linda Lucas MD ?? Date of Service: 04/24/24 ?? Procedure(s): XR knee RT 3V ?? Accession Number(s): [id number] ? cc: Linda Lucas MD ? CLINICAL HISTORY: right knee pain ? 3 view right knee ? Comparison: CR/SR - XR KNEE RT 4V - 12/03/21 12:42 EDT ? Findings: ?? Mild patella [place]. Bony alignment is otherwise anatomic. ?? No acute fracture. ?? Txro-am-fktsxtoo tricompartmental osteoarthritis, most pronounced within ?? the medial compartment with joint space narrowing and osteophyte formation. ?? No erosions. ?? Trace knee joint effusion. ?? Unchanged bony excrescences off the medial aspect of the distal femur and ?? the medial aspect of the proximal tibia. No periosteal reaction or bony ?? destructive change seen. ? IMPRESSION: ?? Unchanged exam. Continued tricompartmental osteoarthritis, most pronounced ?? in the medial compartment. ?? Unchanged osteochondromas of the medial aspect of the distal femur in the ?? medial aspect of the proximal tibia. No radiographic findings of malignant ?? transformation. ? This document has been electronically signed by: Alec Singleton MD on ?? 04/25/2024 05:31:45 ? Dictated By: ?Alec Singleton MD ? Signed By: ?<Electronically signed by Alec Singleton MD in OV> ? 04/25/24 0532 ? DD/ 0531 ? TD/TT: 04/25/2431 ? Biotechnologist: ? Procedure Note Mahi, Image - 04/25/[address] [address] XRay Report Signed Patient: Paulie CoreyMR#: [id number] : 1970Acct:[id number] Age/Sex: 53 / MADM Date: 04/24/24 Loc: HO.HHCL Attending Dr: Linda Lucas MD Ordering Physician: Linda Lucas MD Date of Service: 04/24/24 Procedure(s): XR knee RT 3V Accession Number(s): [id number] cc: Linda Lucas MD CLINICAL HISTORY: right knee pain 3 view right knee Comparison: CR/SR - XR KNEE RT 4V - 12/03/21 12:42 EDT Findings: Mild patella [place]. Bony alignment is otherwise anatomic. No acute fracture. Jbkw-vg-ejnfaimk tricompartmental osteoarthritis, most pronounced within the medial compartment with joint space narrowing and osteophyteformation. No erosions. Trace knee joint effusion. Unchanged bony excrescences off the medial aspect of the distal femur and the medial aspect of the proximal tibia. No periosteal reaction or bony destructive change seen. IMPRESSION: Unchanged exam. Continued tricompartmental osteoarthritis, most pronounced in the medial compartment. Unchanged osteochondromas of the medial aspect of the distal femur in the medial aspect of the proximal tibia. No radiographic findings of malignant transformation. This document has been electronically signed by: Alec Singleton MD on 04/25/2024 05:31:45 Dictated By: Alec Singleton MD Signed By: <Electronically signed by Alec Singleton MD in OV> 04/25/24531 DD/ 0 TD/TT: 04/25/24530 Biotechnologist: Linda Lucas MD IMG XR PROCEDURES Final Result * TSH with Reflex to Free T4 (04/24/2024 3:20 PM EST) TSH reflex Free T4 0.92 0.32 - 4.0 uIU/mL [facility] Blood 04/24/2024 3:20 PM EST 04/24/2024 4:12 PM EST Linda Lucas MD LAB BLOOD ORDERABLES Final Resul t [facility] [address] [place] [phone] * Albumin, Random Urine W/Creatinine (04/24/2024 3:20 PM EST) Creatinine, Urine 129.02 mg/dL [facility] Microalbumin Urine 12.0 mg/L [facility] Microalbum Creatinine Ratio Ur 9.3 <30 ug/mg cr [facility] Comment:Albumin/Creatinine R atio Reference Ranges: Normal: < 30 ug/mg creatinine Microalbuminuria: 30 - 300 ug/mg creatinineClinical Albuminuria: > 300 ug/mg creatinine Urine 04/24/2024 3:20 PM EST 04/24/2024 4:06 PM EST Linda Lucas MD LAB URINE ORDERABLES Final Resul t Performing Organization Address [facility] Phone Number [facility] [address] [place] [phone] * Hepatitis C Antibody with Reflex to HCV, RNA, Quantitative, Real-Time PCR (04/24/2024 3:20 PM EST) Hepatitis C Antibody Nonreactive Nonreactive [facility] Comment:Antibodies to HCV no t detected; does not exclude early acuteHCV infection. Blood Venous blood specimen / Unknown 04/24/2024 3:20 PM EST 04/24/2024 4:12 PM EST Linda Lucas MD LAB BLOOD ORDERABLES Final Resul t Performing Organization Address [facility] Number [facility] [address] [place] [phone] * Thyroid Peroxidase Antibodies (04/24/2024 3:20 PM EST) Thyroid Peroxidase Antibodies <1 <9 IU/mL [facility] Comment:THIS TEST WAS PERFOR MED AT:[employer] [address] [phone] BERGERON MD Blood Venous blood specimen / Unknown 04/24/2024 3:20 PM EST 04/24/2024 4:12 PM EST Linda Lucas MD LAB BLOOD ORDERABLES Final Resul t Performing Organization Address [facility] Phone Number [facility] [address] [place] [phone] * Hepatitis A Antibody, Total (04/24/2024 3:20 PM EST) Hepatitis A Antibody IgG REACTIVE Nonreactive [facility] Comment:The presence of IgG anti-HAV implies past HAV infection(recent or distant) or vaccination against HAV. Blood Venous blood specimen / Unknown 04/24/2024 3:20 PM EST 04/24/2024 4:12 PM EST Linda Lucas MD LAB BLOOD ORDERABLES Final Resul t Performing Organization Address City/[facility]/ZIP Co de Phone Number [facility] [address] [place] [phone] * Hepatitis B surface antigen, EIA (04/24/2024 3:20 PM EST) Hepatitis B Surface Ag Negative Negative [facility] Blood Venous blood specimen / Unknown 04/24/2024 3:20 PM EST 04/24/2024 4:12 PM EST us Linda Lucas MD LAB BLOOD ORDERABLES Final Resul t Performing Organization Address [facility] Co de Phone Number [facility] [address] [place] [phone] * Hepatitis B Core Antibody, Total (04/24/2024 3:20 PM EST) Hepatitis B Core Antibody Nonreactive Nonreactive [facility] Blood Venous blood specimen / Unknown 04/24/2024 3:20 PM EST 04/24/2024 4:12 PM EST Linda Lucas MD LAB BLOOD ORDERABLES Final Resul t Performing Organization Address [facility] Co de Phone Number [facility] [address] [place] [phone] * HIV-1/2 Antigen and Antibodies, Fourth Generation, with Reflexes (04/24/2024 3:20 PM EST) HIV AB/AG Nonreactive Nonreactive [facility] Comment:HIV-1 p24 Ag and/or HIV-1/HIV-2 Ab not detected.A test result that is nonreactive does not exclude thepossibility of exposure to or infection with HIV-1 and/orHIV-2. Nonreactive results in this assay for individualswith prior exposure to HIV-1 and/or HIV-2 may be due toantigen and antibody levels that are below the limit ofdetection of this assay.The IQ El[employer]ity HIV Ag/Ab Combo assay result andsupplemental assay results should be interpreted inconjunction with the patient's clinical presentation,history and other laboratory results. If the results areinconsistent with clinical evidence, additional testing issuggested to confirm the result. Blood Venous blood specimen / Unknown 04/24/2024 3:20 PM EST 04/24/2024 4:12 PM EST Linda Lucas MD LAB BLOOD ORDERABLES Final Resul t Performing Organization Address [facility] Co de Phone Number [facility] [address] [place] [phone] * Hepatitis B Surface Antibody, Qualitative (04/24/2024 3:20 PM EST) ~Hepatitis B Surface Antibody REACTIVE Nonreactive [facility] Comment:REACTIVE: > 11.99 mI U/mL Blood Venous blood specimen / Unknown 04/24/2024 3:20 PM EST 04/24/2024 4:12 PM EST Linda Lucas MD LAB BLOOD ORDERABLES Final Resul t Performing Organization Address [facility] Co de Phone Number [facility] [address] [place] [phone] * (ABNORMAL) T3, Free (04/24/2024 3:20 PM EST) T3, Free 2.1(A) 2.3 - 4.2 pg/mL [facility] Comment:THIS TEST WAS PERFOR MED AT:[employer] [place] [phone] BERGERON MD Blood Venous blood specimen / Unknown 04/24/2024 3:20 PM EST 04/24/2024 4:12 PM EST Bailey Ray MD LAB BLOOD ORDERABLES Fin al Result Performing Organization Address City/[facility]/ZIP Co de Phone Number [facility] [address] [place] [phone] * (ABNORMAL) T3, Total (04/24/2024 3:20 PM EST) T3, Total 66(A) 76 - 181 ng/dL [facility] Comment:THIS TEST WAS PERFOR MED AT:[employer] [place] [phone] BERGERON MD Blood Venous blood specimen / Unknown 04/24/2024 3:20 PM EST 04/24/2024 4:12 PM EST Bailey Ray MD LAB BLOOD ORDERABLES Fin al Result Performing Organization Address [facility] Co de Phone Number [facility] [address] [place] [phone] * TSH (04/24/2024 3:20 PM EST) [facility] Thyroid Stimulating Hormone 0.96 0.32 - 4.0 uIU/mL [facility] Comment:TSH 3rd Generation ( [facility]) Blood Venous blood specimen / Unknown 04/24/2024 3:20 PM EST 04/24/2024 4:12 PM EST Bailey Ray MD LAB BLOOD ORDERABLES Fin al Result Performing Organization Address [facility] Co de Phone Number [facility] [address] [place] [phone] * (ABNORMAL) T4, Free (04/24/2024 3:20 PM EST) Free T4 (Free Thyroxine) 0.64(L) 0.71 - 1.85 ng/dL [facility] Blood Venous blood specimen / Unknown 04/24/2024 3:20 PM EST 04/24/2024 4:12 PM EST Bailey Ray MD LAB BLOOD ORDERABLES Fin al Result Performing Organization Address City/[facility]/ZIP Co de Phone Number [facility] [address] [place] [phone] * (ABNORMAL) T4 (Thyroxine), Total (04/24/2024 3:20 PM EST) T4 Thyroxine 3.9(L) 4.5 - 12.0 ug/dL [facility] Blood Venous blood specimen / Unknown 04/24/2024 3:20 PM EST 04/24/2024 4:12 PM EST Bailey Ray MD LAB BLOOD ORDERABLES Fin al Result Performing Organization Address City/[facility] Co de Phone Number [facility] [address] [place] [address] [phone] * (ABNORMAL) Hepatic Function Panel (04/24/2024 3:20 PM EST) Bilirubin, Total 1.1(H) 0.0 - 1.0 mg/dL [facility] Bilirubin, Direct 0.3 0.0 - 0.5 mg/dL [facility] Aspartate Amino Transferase 76(H) 5 - 37 U/L [facility] Alanine Aminotransferase 87(H) 0 - 40 U/L [facility] Total Protein 8.5(H) 6.5 - 8.0 g/dL [facility] Albumin Level 4.6 3.5 - 5.0 g/dL [facility] Alkaline Phosphatase 95 39 - 117 U/L [facility] Blood Venous blood specimen / Unknown 04/24/2024 3:20 PM EST 04/24/2024 4:12 PM EST us Linda Lucas MD LAB BLOOD ORDERABLES Final Resul t Performing Organization Address [facility] Co de Phone Number [facility] [address] [place] [phone] * (ABNORMAL) Basic Metabolic Panel (04/24/2024 3:20 PM EST) Sodium 138 135 - 145 mmol/L [facility] Potassium 4.1 3.3 - 5.1 mmol/L [facility] Chloride 102 96 - 108 mmol/L [facility] Carbon Dioxide 26 22 - 29 mmol/L [facility] Anion Gap 14 12 - 20 [facility] Urea Nitrogen (BUN) 12 9 - 16 mg/dL [facility] Creatinine, Serum 1.21 0.5 - 1.4 mg/dL [facility] Estimated Glomerular Filt Rate >60 [facility] Comment:Chronic Kidney Disea se: Estimated GFR < 60 mL/min/1.93d3Ojidnv Kidney Disease: Estimated GFR < 15 mL/min/1.73m2 Glucose 151(H) 60 - 115 mg/dL [facility] Calcium 10.0 8.4 - 10.2 mg/dL [facility] Blood Venous blood specimen / Unknown 04/24/2024 3:20 PM EST 04/24/2024 4:12 PM EST us Bailey Ray MD LAB BLOOD ORDERABLES Fin al Result Performing Organization Address [facility] Co de Phone Number [facility] [address] [place] [phone] * (ABNORMAL) POCT glycosylated hemoglobin (Hgb A1c) (04/24/2024 2:36 PM EST) Hemoglobin A1C 7.6(A) 4.0 - 6.0 % QC Media Lot # [id number] Lot# Expiration Date Blood Capillary blood specimen / Unknown 04/24/2024 2:36 PM EST us Linda Lucas MD POINT OF CARE TEST ENTER/EDIT OR DERABLES Final Result * POCT glucose manually resulted (04/24/2024 2:36 PM EST) Glucose Blood, POC 182 60 - 200 mg/dL [employer] Lot # [id number] Lot# Expiration Date Blood Capillary blood specimen / Unknown 04/24/2024 2:36 PM EST us Linda Lucas MD POINT OF CARE TEST ENTER/EDIT OR DERABLES Final Result * (ABNORMAL) Lipid Panel with Reflex to Direct LDL (01/02/2024 3:00 PM EDT) Triglycerides 690(H) <150 mg/dL [facility] Comment:Desirable Triglyceri de: less than 150 mg/dLBorderline High Triglyceride 150-199 mg/dLHigh Triglyceride: 200-499 mg/dLVery High Triglyceride: greater than or equal to 5OO mg/dL Cholesterol 231(H) <200 mg/dL [facility] Comment:Desirable Cholestero l: less than 200 mg/dLBorderline High Cholesterol: 200-239 mg/dLHigh Cholesterol: greater than 239 mg/dL LDL Cholesterol Calculated TNP <100 mg/dL [facility] Comment:Unable to calculate the LDL. The formula of Friedwald,Boone, and Marie is only valid if the triglycerides areless than 400 mg/dl. HDL Cholesterol 23(L) >40 mg/dL [facility] Comment:Desirable HDL: great er than 40 mg/dL Note: This HDL assay may give artificially low results in patients with liver disease. Blood 01/02/2024 3:00 PM EDT 01/02/2024 4:37 PM EDT us Linda Lucas MD LAB BLOOD ORDERABLES Final Resul t [facility] [address] [place] [phone] * (ABNORMAL) Colonoscopy (03/26/2021) Colonoscopy Abnormal(A ) Normal 03/26/2021 Chance Jones MD HEALTH MAINTENANCE Edited Resul t - Final from Last 3 Months or Most Recently Relevant to Health Maintenance Insurance - [employer] Care Teams Tripoler Relationship Specialty Start Date End Date Linda Lucas MD [address] [place] [address] PCP - General Family Medicine 04/04/18 Emile Brambila, PharmD [address] [place] [address] Pharmacist Internal Medicine 07/12/22
--- OUTSIDE RECORDS SUMMARY | 2024-05-21 09:50 | XMS_ITS | Encounter Summary ---
Author Organization [employer] Address [address] [facility] [address] [place] [address] Care Team Providers Care Plastic Mould Maker Name Role Phone Linda Lucas MD Primary Care Provider [phone] Emile Brambila PharmD Unavailable [phone] Reason for Visit * Reason Comments Med Refill Encounter Details Date Type Department Care Team (Late st Contact Info) Description 04/21/2024 Refill [facility] [address], [place] [phone] Linda Lucas MD [address], [place] [phone] Allergic rhinitis, unspecified seasonality, unspecified trigger Social History Tobacco Use Types Packs/Day Years [...] as of this encounter Visit Diagnoses Diagnosis Allergic rhinitis, unspecified seasonality, unspecified trigger documented in this encounter Additional Health Concerns Assessment Noted Time PHQ-9 Depression Total Score: 7 07/06/19 23 3:08 PM EDT documented as of this encounter Care Teams Plastic Mould Maker Relationship Specialty Start Date End Date Linda Lucas MD [address] [place] [address] PCP - General Family Medicine 04/04/18 Emile Brambila PharmD [address] [place] [phone] Pharmacist Internal Medicine 07/12/22 documented as of this encounter
--- OUTSIDE RECORDS SUMMARY | 2024-05-21 09:50 | XMS_ITS | Encounter Summary ---
Author Organization [employer] Address [address] [facility] [address] [place] [address] Care Team Providers Care Rubber Goods Tester Name Role Phone Linda Lucas MD Primary Care Provider [phone] Emile Brambila PharmD Unavailable [phone] Encounter Details Date Type Department Care Team (Late st Contact Info) Description 03/08/2024 Orders Only [facility] [address] [place], [place] [phone] Linda Lucas MD [address] [place], [place] [phone] Social History Tobacco Use Types Packs/Day Years [...] the past 12 months, has t he [employer] gas, oil or water company threatened to [...] documented as of this encounter Care Teams Rubber Goods Tester Relationship Specialty Start Date End Date Linda Lucas MD [address] [place] [address] PCP - General Family Medicine 04/04/18 Emile Brambila PharmD [address] [place] [address] Pharmacist Internal Medicine 07/12/22 documented as of this encounter
--- OUTSIDE RECORDS SUMMARY | 2024-05-21 09:50 | XMS_ITS | Encounter Summary ---
Author Organization [email or web address] Address [address] [place] [address] [address] [place] [address] Care Team Providers Care Warehouse Insulation Worker Name Role Phone Linda Lucas MD Primary Care Provider [phone] Emile Brambila PharmD Unavailable [phone] Reason for Referral * Imaging (Routine) - Authorized Specialty Diagnoses / Procedures Referred By Contac t Referred To Contact Radiology Diagnoses Metabolic dysfunction-associated steatotic liver disease (MASLD) Procedures US Abdomen Comp w elastography Linda Lucas MD [address] [place] [address] Phone: tel: fax: [address] Phone: tel: fax: Referral ID Status Reason Start Date Expiration Date V isits Requested Visits Authorized [id number] Authorized 04/25/2024 04/25/2025 1 1 Encounter Details Date Type Department Care Team (Late st Contact Info) Description 04/25/2024 Orders Only [facility] [address] [place], [place] [phone] Linda Lucas MD [address] [place], [place] [phone] Metabolic dysfunction-associated steatotic liver disease (MASLD) (Primary Dx) Social History Tobacco Use Types [...] of this encounter Plan of Treatment Scheduled Orders Name Type Priority Associated Diagnoses Orde r Schedule US Abdomen Comp w elastography Imaging Routine Metabolic dysfunction-associated steatotic liver disease (MASLD) Expected: 04/25/2024, Expires: 04/25/2025 documented as of this encounter Goals Goal Patient Goal Type Associated Problems Recent Progress Patient-Stated? Author Blood Pressure < 140/90 Blood Pressure 144/94(2024 2:30 PM EST) No Emile Brambila PharmD Hemoglobin A1c < 7 Result Component 7.6( 2:36 PM EST) No Emile Brambila PharmD documented as of this encounter Visit Diagnoses Diagnosis Metabolic dysfunction-associated steatotic liver disease (MASLD)- Primary documented in this encounter Additional Health Concerns Assessment Noted Time PHQ-9 Depression Total Score: 6 04/25/19 25 9:20 AM EST documented as of this encounter Care Teams Warehouse Insulation Worker Relationship Specialty Start Date End Date Linda Lucas MD [address] [place] [id number] PCP - General Family Medicine 04/04/18 Emile Brambila PharmD [address] [place] [phone] Pharmacist Internal Medicine 07/12/22 documented as of this encounter
--- OUTSIDE RECORDS SUMMARY | 2024-05-21 09:50 | XMS_ITS | Encounter Summary ---
Author Organization [employer] Address [address] [facility] [address] [place] [address] Care Team Providers Care Parquetry Layer Name Role Phone Linda Lucas MD Primary Care Provider [phone] Emile Brambila PharmD Unavailable [phone] Encounter Details Date Type Department Care Team (Late st Contact Info) Description 09/29/2022 Abstract [facility] MEDICINE [address] [place], [place] [phone] Linda Lucas MD [address] [place] [address] Social History Tobacco Use Types Packs/Day Years Used Date Smoking Tobacco: Some Days Cigarettes Smokeless Tobacco: Never Depression Answer Date Recorded Patient Health Questionnaire-9 Score 7 07/05/2022 Depression Answer Date Recorded Patient Health Questionnaire-2 [...] suspected to have Coronavirus/COVID-19? No / Unsure 09/07/2022 12:27 PM EDT documented as of this encounter Plan of Treatment Not on file documented as of this encounter Goals Goal Patient Goal Type Associated Problems Recent Progress Patient-Stated? Author Blood Pressure < 140/90 Blood Pressure 144/94( 025 2:30 PM EST) No Emile Brambila, Mickey documented as of this encounter Procedures Procedure Name Priority Date/Time Associated Diagnosis Comments HM COLONOSCOPY Routine 03/26/2021 documented in this encounter Results * (ABNORMAL) Hm Colonoscopy (03/26/2021) Colonoscopy Abnormal(A ) Normal 03/26/2021 us Chance Jones MD HEALTH MAINTENANCE Edited Resul t - Final documented in this encounter Visit Diagnoses Not on filedocumented in this encounter Additional Health Concerns Assessment Noted Time PHQ-9 Depression Total Score: 7 07/06/19 23 3:08 PM EDT documented as of this encounter Care Teams Parquetry Layer Relationship Specialty Start Date End Date Linda Lucas MD [address] [place] [address] PCP - General Family Medicine 04/04/18 Emile Brambila, PharmD [address] [place] [address] Pharmacist Internal Medicine 07/12/22 documented as of this encounter
--- OUTSIDE RECORDS SUMMARY | 2024-05-21 09:50 | XMS_ITS | Encounter Summary ---
Author Organization [employer] Address [address] [facility] [address] [place] [address] Care Team Providers Care Concrete Float Maker Name Role Phone Linda Lucas MD Primary Care Provider [phone] Emile Brambila PharmD Unavailable [phone] Reason for Visit * Reason Onset Date Comments Results 04/26/2024 Encounter Details Date Type Department Care Team ([facility] st Contact Info) Description 04/26/2024 Telephone [facility] MEDICINE [address] [place] [address] Francisca Mac, DELFINA Results Social History Tobacco Use Types Packs/Day Years [...] the past 12 months, has t he [employer], gas, oil or water company threatened to [...] AM EDT documented as of this encounter Miscellaneous Notes * Telephone Encounter - Francisca Mac RN - 04/26/2024 9:51 AM EST Telephone call to pt to advise lab work continues to show elevated liver enzymes and that PCP ordered follow up ultrasound to evaluate liver further. Advised him to expect call from [facility] in 1[place]2 weeks to schedule appt. Reviewed with pt importance of health diet: avoiding fried/greasy, high sugar foods, avoiding processed foods with corn syrup, increasing fruits, vegetables and fiber, avoiding red meat, baking rather than frying, and using olive oil sparingly. Also advised pt that knee xray shows arthritis, unchanged from last xray. Pt verbalized understanding, no further questions. * Telephone Encounter - Francisca Mac RN - 04/26/2024 9:38 AM EST ----- Message from Linda Lucas MD sent at 04/25/2024 4:47 PM EST ----- Please inform patient that his liver enzymes are still elevated. Please encourage him to eat healthier. I am ordering US. Please inform patient that his knee X-ray shows degenerative changes (arthritis), unchanged from previous X- ray. Thank you documented in this encounter Plan of Treatment Not on [...] documented as of this encounter Care Teams Concrete Float Maker Relationship Specialty Start Date End Date Linda Lucas MD [address] [place] [address] PCP - General Family Medicine 04/04/18 Emile Brambila PharmD [address] [place] [address] Pharmacist Internal Medicine 07/12/22 documented as of this encounter
--- OUTSIDE RECORDS SUMMARY | 2024-05-21 09:50 | XMS_ITS | Encounter Summary ---
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 Name Role Phone Linda Lucas MD Primary Care Provider [phone] Emile Brambila PharmD Unavailable Reason for Referral * Consultation (Routine) - Authorized Specialty Diagnoses / Procedures Referred By Stacy fernandez Referred To Contact Orthopaedic Surgery Diagnoses Chronic pain of right knee Traumatic arthropathy of knee, unspecified laterality Linda Lucas MD [address] [place] [address] Phone: tel: fax: [facility] [address] [place] [address] Phone: tel: fax: Referral ID Status Reason Start Date Expiration Date Visits Requested Visits Authorized [id number] Authorized Specialty Services Required 04/28/2024 04/28/2025 1 1 * Consultation (Routine) - Authorized Specialty Diagnoses / Procedures Referred By Stacy fernandez Referred To Contact Optometry Diagnoses Type 2 diabetes mellitus with hyperglycemia, with long-term current use of insulin ([facility]) Linda Lucas MD [address] [place] [address] Phone: tel: fax: [facility] OPTOMETRY [address] [place] [address] Phone: tel: fax: Referral ID Status Reason Start Date Expiration Date Visits Requested Visits Authorized [id number] Authorized Consult and Treat 04/28/2024 04/28/2025 1 1 Encounter Details Date Type Department Care Team (Latest Contact Info) Description 04/24/2024 1:00 PM EST Office Visit [facility] MEDICINE [address] [place] [address] Linda Lucas MD [address] [place] [address] Type 2 diabetes mellitus with hyperglycemia, with long-term current use of insulin (CMS/HCC) (Primary Dx); Primary hypertension; Obstructive sleep apnea syndrome; 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); Seizure disorder (CMS/HCC); Low TSH level; Chronic pain of right knee; Transaminitis; Metabolic dysfunction-associated steatotic liver disease (MASLD); Dietary counseling; Exercise counseling; Class 2 severe obesity due to excess calories with serious comorbidity and body mass index (BMI) of 39.0 to 39.9 in adult (CMS/HCC); Dyslipidemia; Hypertriglyceridemia; Increased creatine kinase level; Traumatic arthropathy of knee, unspecified laterality Social History Tobacco Use Types Packs/Day Years [...] AM EDT documented as of this encounter Last Filed Vital Signs Vital Sign Reading [...] oz) 04/24/2024 2:30 P M EST Height - - Body Mass Index 39.82 02/08/2024 11:57 AM EST documented in this encounter Progress Notes * Linda Lucas MD - 04/24/2024 1:00 PM EST Yamilka Corey is a 53 y.o. male who has diabetes mellitus type 2, hypertension, and DIMITRI, and patient presents for follow up of chronic conditions. Background: Our last encounter was 02/08/2024. Last 3 months has been stressful. Newly diagnosed diabetes mellitus type 2 on 01/09/24. Sent to ED due to hyperglycemia. Started on insulin regimen. Started seeing Diego Brambila PharmD, for CDTM. Still waiting for CPAP. Interval history: No CGM data available since Jan 2024. Seen in [facility] ED on 04/06/24 for right hand pain. Today: Patient states his blood sugars are improved. He would like to take a medication to help him lose weight. Patient reports using his CPAP, not everyday, but he does use it regularly. Patient asks about fluid pill he takes for his leg swelling. He doesn't not know the names of his medications, but states he takes 2 medications for BP. Patient states his blood pressures at home have been 149-150. Patient reports he has seen eye doctor, but may need a follow up as he sees blurry and notes he would like to see a specialist. Patient requests another X-ray order for his right knee, and would like a referral to orthopedist to have his knee evaluated. Medications were reviewed and adjustments made. Review of Systems Constitutional: Negative for activity change, appetite change and fever. Respiratory: Negative for shortness of breath. Cardiovascular: Negative for chest pain. Objective Vitals: 04/24/24 1430 BP: (!) 144/94 Pulse: 70 Resp: 15 Temp: 96.6 ??F (35.9 ??C) TempSrc: Temporal SpO2: 98% Weight: 301 lb 12.8 oz (137 kg) Physical Exam Constitutional: General: He is not in acute distress. Appearance: Normal appearance. He is not ill-appearing. HENT: Head: Normocephalic and atraumatic. Mouth/Throat: Mouth: Mucous membranes are moist. Eyes: Extraocular Movements: Extraocular movements intact. Pupils: Pupils are equal, round, and reactive to light. Cardiovascular: Rate and Rhythm: Normal rate and regular rhythm. Heart sounds: No murmur heard. Pulmonary: Effort: Pulmonary effort is normal. No respiratory distress. Breath sounds: Normal breath sounds. No wheezing or rhonchi. Skin: General: Skin is warm. Neurological: Mental Status: He is alert. Mental status is at baseline. Psychiatric: Mood and Affect: Mood normal. Results: Lab Results Component Value Date NA 138 04/24/2024 K 4.1 04/24/2024 CL 102 04/24/2024 CO2 26 04/24/2024 BUN 12 04/24/2024 CREATININE 1.21 04/24/2024 EGFR >60 04/24/2024 GLUCOSE 151 (H) 04/24/2024 TOTALBILIRUB 1.1 (H) 04/24/2024 AST 76 (H) 04/24/2024 ALT 87 (H) 04/24/2024 TOTPROTEIN 8.5 (H) 04/24/2024 ALB 4.6 04/24/2024 ALP 95 04/24/2024 Lab Results Component Value Date TRIG 690 (H) 01/02/2024 CHOL 231 (H) 01/02/2024 LDLCHOLCAL TNP 01/02/2024 HDL 23 (L) 01/02/2024 Lab Results Component Value Date HGBA1C 7.6 (A) 04/24/2024 MICROALBUR 12.0 04/24/2024 CREATUR 129.02 04/24/2024 MICROALBCREU 9.3 04/24/2024 Lab Results Component Value Date WBC 9.5 01/02/2024 HGB 14.0 01/02/2024 HCT 41.7 (L) 01/02/2024 PLT 154 (L) 01/02/2024 MCV 87.1 01/02/2024 The 10-year ASCVD risk score (Marin CONTRERAS, et al., 2019) is: 28.8% Values used to calculate the score: Age: 53 years Sex: Male Is Non- : No Diabetic: Yes Tobacco smoker: No Systolic Blood Pressure: 144 mmHg Is BP treated: Yes HDL Cholesterol: 23 mg/dL Total Cholesterol: 231 mg/dL Screening and Health Care Maintenance: PHQ-2/9 Score: Patient Health Questionnaire-9 Score: 6 (04/25/2024 9:20 AM) Patient Health Questionnaire-2 Score: 2 (04/25/2024 9:20 AM) Thoughts that you would be better off or hurting yourself in some way: Not at all (04/25/2024 9:20 AM) GUILLERMINA-7 Score: GUILLERMINA-7 Total Score: 1 (04/25/2024 9:20 AM) Health Maintenance Due Topic Date Due Eye Exam Never done SDOH Screening 07/06/2023 Colorectal Cancer Screening 03/26/2024 Diabetes: Hemoglobin A1C 07/23/2024 Assessment/Plan Problem List Items Addressed This Visit 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 Parisi in Dec 2017, did not follow-up for EEG. --His impression was seizure d/o and CIDP -NCT/EMG on 11/04/17 was consistent with diffuse demyelinating more than axonal, sensory-motor peripheral neuropathy in the lower extremities, suggestive of CIDP. EMG of the right L3-S1 innervated muscles shows evidence of minimal distal chronic denervating changes of neuropathy. 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 -being scheduled for IV Ig 400 mg/kg/d x 5 doses, then repeat EMG/NCT 1 mo after treatment -advised to contact [facility] neurology regarding to the treatment Increased creatine kinase level Hypertension -Goal BP <140/90 per JNC-8, < 130/80 [...] Waiting for a new mask to use Relevant Medications chlorthalidone (Hygroton) 25 MG tablet Metabolic dysfunction-associated steatotic liver disease (MASLD) -Followed by GI, last seen in Dec 2021 -Most recent US in September 2022 -Most recent lab on 01/02/24, ALT 111; AST 64; AlkPhos 72; GGT 54 -FIB4 index: 2.09, indeterminate -Avoid hepatotoxic drugs. -f/u with GI, pt was advised to contact office for next f/u appt - will update US Obesity Obstructive sleep apnea syndrome - last sleep study done in January 2024 - will send a new CPAP machine order Seizure disorder (CMS/HCC) - previously seen by Dr. Parisi, pt missed several follow-up appts - currently seeing Dr. Guadarrama, last seen on 03/15/22 - last seizure in 2005 - continue gabapentin 300 mg tid - advised patient to call Neurology Office to ask about an appointment Diabetes mellitus, type 2 (CMS/HCC) - Primary - Dx in January 2024, with elevated [...] lipid profile: 01/02/24 - Microalbumin: not done Relevant Orders POCT glucose manually resulted (Completed) POCT glycosylated hemoglobin (Hgb A1c) (Completed) Albumin, Random Urine W/Creatinine (Completed) Referral to [facility] Eye Care Dyslipidemia - history of elevated CK and transaminitis - continue rosuvastatin 5 mg at bedtime - continue working on lifestyle modifications Hypertriglyceridemia - continue working on lifestyle modifications - continue icosapent ethyl Other Visit Diagnoses Low TSH level Relevant Orders Thyroid Peroxidase Antibodies (Completed) TSH with Reflex to Free T4 (Completed) Chronic pain of right knee Relevant Orders XR Knee 3 Views Right (Completed) Transaminitis Relevant Orders Hepatic Function Panel (Completed) Hepatitis C Antibody with Reflex to HCV, RNA, Quantitative, Real-Time PCR (Completed) Hepatitis B Surface Antibody, Qualitative (Completed) Hepatitis B Core Antibody, Total (Completed) HIV-1/2 Antigen and Antibodies, Fourth Generation, with Reflexes (Completed) Hepatitis B surface antigen, EIA (Completed) Hepatitis A Antibody, Total (Completed) Dietary counseling Exercise counseling No Known Allergies Current Outpatient Medications Medication Instructions albuterol 108 (90 Base) MCG/ACT inhaler INHALE 2 PUFFS BY MOUTH EVERY 4 TO 6 HOURS NEEDED Alcohol Swabs (Alcohol Prep) pads Check blood sugar three times daily before meals and as needed amLODIPine (NORVASC) 5 mg, Oral, Daily mhnlilk-mxspqyukmrlyn-unbeibcf (Excedrin Migraine) 250-250-65 MG tablet 1 tablet, Every 6 hours PRN aspirin 81 mg, Oral, Daily Blood Pressure kit Use daily as directed chlorthalidone (Hygroton) 25 MG tablet Take 1 tablet by mouth every morning ciclopirox (Penlac) 8 % solution Topical, Nightly Continuous Glucose Medical Lab Tech Instructor (FreeStyle Cristopher 2 [place]) device Scan sensor every 8 hours Continuous Glucose Sensor (FreeStyle Cristopher 2 Sensor) [facility] Apply 1 sensor every 14 days fluticasone (Flonase) 50 MCG/ACT nasal spray INSTILL 1-2 SPRAYS IN EACH NOSTRIL ONCE DAILY IN THE MORNING FreeStyle lancets 1 each, Other, 3 times daily before meals, Check blood glucose gabapentin (Neurontin) 300 MG capsule TAKE 1 CAPSULE BY MOUTH AT BEDTIME FOR PAIN glucose blood (FreeStyle Precision Jasiel Test) test strip Use to test blood sugar 3 times daily as needed Icosapent Ethyl (VASCEPA) 2 g, Oral, 2 times daily with meals insulin glargine (Lantus SoloStar) 100 UNIT/ML pen Inject 16 units under the skin once daily Insulin Pen Needle (pen needle 06/17 ) 31G x 5 mm misc Use 1x/day lisinopril 40 MG tablet Take 1 tablet by mouth once daily metFORMIN (Glucophage) 500 MG tablet Take 1 tablet by mouth twice daily with meals Naproxen DR 500 MG tablet delayed-release TAKE 1 TABLET BY MOUTH TWICE DAILY WITH FOOD NEEDED polyethylene glycol, PEG, 3350 (HealthyLax) 17 g packet DISSOLVE 1 PACKET IN 8 OUNCES OF WATER, COFFEE, OR TEA AND TAKE BY MOUTH TWICE DAILY rosuvastatin (CRESTOR) 5 mg, Oral, Daily semaglutide (OZEMPIC) 0.25 mg, Subcutaneous, Weekly Follow-up: 3 months or sooner if any problem arises. Scribe attestation: Amrita Larsen, am serving as a scribe to document services personally performed by Linda Ibarra on the patient's response to questions by provider and providers statements to me. Physicians Attestation: Linda Larsen, have reviewed the information by the scribe, Amrita Rosario, for accuracy and agree with its content. documented in this encounter Miscellaneous Notes * Assessment & Plan Note - Linda Lucas MD - 04/28/2024 7:35 AM ESTAssociated Problem(s): Chronic pain of right knee -Previously followed by orthopedist. 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, Recommended to use brace for stability and recommended as candidate for MPFL reconstructive surgery but did not f/u for further evaluation in Mar 2017 -Received euflexxa injection in 2019 from orthopedist -Continue acetaminophen and naproxen prn -Continue knee brace -Refer back to [facility] * Assessment & Plan Note - Linda Lucas MD - 04/28/2024 7:29 AM ESTAssociated Problem(s): Hypertriglyceridemia - continue working on lifestyle modifications - continue icosapent ethyl * Assessment & Plan Note - Linda Lucas MD - 04/28/2024 7:28 AM ESTAssociated Problem(s): Dyslipidemia - history of elevated CK and transaminitis - continue rosuvastatin 5 mg at bedtime - continue working on lifestyle modifications * Assessment & Plan Note - Linda Lucas MD - 04/28/2024 7:19 AM ESTAssociated Problem(s): Metabolic dysfunction-associated steatotic liver disease (MASLD) -Followed by GI, last seen in Dec 2021 -Most recent US in September 2022 -Most recent lab on 01/02/24, ALT 111; AST 64; AlkPhos 72; GGT 54 -FIB4 index: 2.09, indeterminate -Avoid hepatotoxic drugs. 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 Parisi in Dec 2017, did not follow-up for EEG. --His impression was seizure d/o and CIDP -NCT/EMG on 11/04/17 was consistent with diffuse demyelinating more than axonal, sensory-motor peripheral neuropathy in the lower extremities, suggestive of CIDP. EMG of the right L3-S1 innervated muscles shows evidence of minimal distal chronic denervating changes of neuropathy. 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 Parisi, pt missed several follow-up appts - currently seeing Dr. Guadarrama, last seen on 03/15/22 - last seizure in 2005 - continue gabapentin 300 mg tid - advised patient to call Neurology Office to ask about an appointment documented in this encounter Plan of Treatment Scheduled Referrals Name Type Priority Associated Diagnoses Orde r Schedule Referral to [facility] Eye Care Outpatient Referral Routine Type 2 diabetes mellitus with hyperglycemia, with long-term current use of insulin (CMS/HCC) Expected: 04/28/2024 (Approximate), Expires: 04/28/2025 Referral to Orthopaedic Surgery Outpatient Referral Routine Chronic pain of right knee Traumatic arthropathy of knee, unspecified laterality Expected: 04/28/2024 (Approximate), Expires: 04/28/2025 documented as of this encounter Goals Goal Patient Goal Type Associated Problems Recent Progress Patient-Stated? Author Blood Pressure < 140/90 Blood Pressure 144/94(2024 2:30 PM EST) Emile Babin, PharmD Hemoglobin A1c < 7 Result Component 7.6( 2:36 PM EST) No Emile Brambila PharmD documented as of this encounter Procedures Procedure Name Priority Date/Time Associated Diagnosis Comments XR KNEE 3 VIEWS RIGHT Routine 04/25/2024 5:31 AM EST Chronic pain of right knee TSH W/REFLEX TO FT4 Routine 04/24/2024 3 :20 PM EST Low TSH level ALBUMIN, RANDOM URINE W/CREATININE Routine 04/24/2024 3:20 PM EST Type 2 diabetes mellitus with hyperglycemia, with long-term current use of insulin (CMS/HCC) HEPATITIS C AB W/REFL TO HCV RNA, QN, PCR Routine 04/24/2024 3:20 PM EST Transaminitis THYROID PEROXIDASE ANTIBODIES Routine 04/24/2024 3:20 PM EST Low TSH level HEPATITIS A ANTIBODY, TOTAL Routine 04/24/2024 3:20 PM EST Transaminitis HEPATITIS B SURFACE ANTIGEN, EIA Routine 04/24/2024 3:20 PM EST Transaminitis HEPATITIS B CORE AB TOTAL Routine 04/24/2024 3:20 PM EST Transaminitis HIV 1/2 ANTIGEN/ANTIBODY, FOURTH GENERATION W/RFL Routine 04/24/2024 3:20 PM EST Transaminitis HEPATITIS B SURFACE ANTIBODY, QUALITATIVE Routine 04/24/2024 3:20 PM EST Transaminitis HEPATIC FUNCTION PANEL Routine 04/24/2024 3:20 PM EST Transaminitis POCT GLYCOSYLATED HEMOGLOBIN (HGB A1C) Routine 04/24/2024 2:36 PM EST Type 2 diabetes mellitus with hyperglycemia, with long-term current use of insulin (CMS/HCC) POCT GLUCOSE Routine 04/24/2024 2:36 PM EST Type 2 diabetes mellitus with hyperglycemia, with long-term current use of insulin (CMS/HCC) documented in this encounter Results * XR Knee 3 Views Right (04/25/2024 5:31 AM EST) Anatomical Region Laterality Modality Lower Extremities, Knee Right Radiogra phic Imaging 04/25/2024 5:31 AM EST Narrative 04/25/2024 5:33 AM EST ? [facility] ?[address] ?[place] [address] ?XRay Report ? Signed ? Patient: LeoraPaulie ?MR#: [id number] ?? [id number] ? : 1970 ?Acct:[id number] ? Age/Sex: 53 / M ?ADM Date: 04/24/24 ? Loc: HO.HHCL ? Attending Dr: Linda Lucas MD ? Ordering Physician: Linda Lucas MD ?? Date of Service: 04/24/24 ?? Procedure(s): XR knee RT 3V ?? Accession Number(s): [id number] ? cc: Linda Lucas MD ? CLINICAL HISTORY: right knee pain ? 3 view right knee ? Comparison: CR/SR - XR KNEE RT 4V - 12/03/21 12:42 EDT ? Findings: ?? Mild patella [place]. Bony alignment is otherwise anatomic. ?? No acute fracture. ?? Vbyi-ff-mlrhhmxz tricompartmental osteoarthritis, most pronounced within ?? the [...] by Alec Singleton MD in OV> ? 04/25/24531 ? DD/ 0 ? TD/TT: 04/25/24530 ? Process Development Chemist: ? Procedure Note Donotuseinterpreter, Image - 04/25/[address] [address] XRay Report Signed Patient: Paulie CoreyMR#: [id number] : 1970Acct:[id number] Age/Sex: 53 / MADM Date: 04/24/24 Loc: HO.HHCL Attending Dr: Linda Lucas MD Ordering Physician: Linda Lucas MD Date of Service: 04/24/24 Procedure(s): XR knee RT 3V Accession Number(s): [id number] cc: Linda Lucas MD CLINICAL HISTORY: right knee pain 3 view right knee Comparison: CR/SR - XR KNEE RT 4V - 12/03/21 12:42 EDT Findings: Mild patella [place]. Bony alignment is otherwise anatomic. No acute fracture. Pula-gp-euvyvoqy tricompartmental osteoarthritis, most pronounced within the medial [...] signed by Alec Singleton MD in OV> 04/25/2432 DD/ 0 TD/TT: 04/25/24530 Process Development Chemist: Linda Lucas MD IMG XR PROCEDURES Final Result * Albumin, Random Urine W/Creatinine (04/24/2024 3:20 PM EST) Creatinine, Urine 129.02 mg/dL [facility] Microalbumin Urine 12.0 mg/L [facility] Microalbum Creatinine Ratio Ur 9.3 <30 ug/mg cr [facility] Comment:Albumin/Creatinine R atio Reference Ranges: Normal: < 30 ug/mg creatinine Microalbuminuria: 30 - 300 ug/mg creatinineClinical Albuminuria: > 300 ug/mg creatinine Urine 04/24/2024 3:20 PM EST 04/24/2024 4:06 PM EST us Linda Lucas MD LAB URINE ORDERABLES Final Resul t Performing Organization Address [facility] Co de Phone Number [facility] [address] [place] [phone] * Hepatitis A Antibody, Total (04/24/2024 3:20 PM EST) Hepatitis A Antibody IgG REACTIVE Nonreactive [facility] Comment:The presence of IgG anti-HAV implies past HAV infection(recent or distant) or vaccination against HAV. Blood Venous blood specimen / Unknown 04/24/2024 3:20 PM EST 04/24/2024 4:12 PM EST us Linda Lucas MD LAB BLOOD ORDERABLES Final Resul t Performing Organization Address [facility] Co de Phone Number [facility] [address] [place] [phone] * Hepatitis B surface antigen, EIA (04/24/2024 3:20 PM EST) Hepatitis B Surface Ag Negative Negative [facility] Blood Venous blood specimen / Unknown 04/24/2024 3:20 PM EST 04/24/2024 4:12 PM EST us Linda Lucas MD LAB BLOOD ORDERABLES Final Resul t Performing Organization Address [facility] Co de Phone Number [facility] [address] [place] [address] [place] [phone] * HIV-1/2 Antigen and Antibodies, Fourth Generation, with Reflexes (04/24/2024 3:20 PM EST) HIV AB/AG Nonreactive Nonreactive [facility] Comment:HIV-1 p24 Ag and/or HIV-1/HIV-2 Ab not detected.A test result that is nonreactive does not exclude thepossibility of exposure to or infection with HIV-1 and/orHIV-2. Nonreactive results in this assay for individualswith prior exposure to HIV-1 and/or HIV-2 may be due toantigen and antibody levels that are below the limit ofdetection of this assay.The [employer] HIV Ag/Ab Combo assay result andsupplemental assay results should be interpreted inconjunction with the patient's clinical presentation,history and other laboratory results. If the results areinconsistent with clinical evidence, additional testing issuggested to confirm the result. Blood Venous blood specimen / Unknown 04/24/2024 3:20 PM EST 04/24/2024 4:12 PM EST us Linda Lucas MD LAB BLOOD ORDERABLES Final Resul t Performing Organization Address City/[facility]/ZIP Co de Phone Number [facility] [address] [place] [phone] * Hepatitis B Core Antibody, Total (04/24/2024 3:20 PM EST) Pathologist [facility] Hepatitis B Core Antibody Nonreactive Nonreactive [facility] Blood Venous blood specimen / Unknown 04/24/2024 3:20 PM EST 04/24/2024 4:12 PM EST us Linda Lucas MD LAB BLOOD ORDERABLES Final Resul t Performing Organization Address City/[facility]/ZIP Co de Phone Number [facility] [address] [place] [phone] * Hepatitis B Surface Antibody, Qualitative (04/24/2024 3:20 PM EST) [facility] ~Hepatitis B Surface Antibody REACTIVE Nonreactive [facility] Comment:REACTIVE: > 11.99 mI U/mL Blood Venous blood specimen / Unknown 04/24/2024 3:20 PM EST 04/24/2024 4:12 PM EST us Linda Lucas MD LAB BLOOD ORDERABLES Final Resul t Performing Organization Address [facility] Co de Phone Number [facility] [address] [place] [phone] * Hepatitis C Antibody with Reflex to HCV, RNA, Quantitative, Real-Time PCR (04/24/2024 3:20 PM EST) [facility] Hepatitis C Antibody Nonreactive Nonreactive [facility] Comment:Antibodies to HCV no t detected; does not exclude early acuteHCV infection. Blood Venous blood specimen / Unknown 04/24/2024 3:20 PM EST 04/24/2024 4:12 PM EST us Linda Lucas MD LAB BLOOD ORDERABLES Final Resul t Performing Organization Address [facility] de Phone Number [facility] [address] [place] [phone] * (ABNORMAL) Hepatic Function Panel (04/24/2024 3:20 PM EST) [facility] Bilirubin, Total 1.1(H) 0.0 - 1.0 mg/dL [facility] Bilirubin, Direct 0.3 0.0 - 0.5 mg/dL [facility] Aspartate Amino Transferase 76(H) 5 - 37 U/L [facility] Alanine Aminotransferase 87(H) 0 - 40 U/L [facility] Total Protein 8.5(H) 6.5 - 8.0 g/dL [facility] [facility] Albumin Level 4.6 3.5 - 5.0 g/dL [facility] Alkaline Phosphatase 95 39 - 117 U/L [facility] Blood Venous blood specimen / Unknown 04/24/2024 3:20 PM EST 04/24/2024 4:12 PM EST Linda Lucas MD LAB BLOOD ORDERABLES Final Resul t Performing Organization Address [facility] Co de Phone Number [facility] [address] [place] [phone] * TSH with Reflex to Free T4 (04/24/2024 3:20 PM EST) TSH reflex Free T4 0.92 0.32 - 4.0 uIU/mL [facility] Blood 04/24/2024 3:20 PM EST 04/24/2024 4:12 PM EST Linda Lucas MD LAB BLOOD ORDERABLES Final Resul t Performing Organization Address [facility] de Phone Number [facility] [address] [place] [phone] * Thyroid Peroxidase Antibodies (04/24/2024 3:20 PM EST) Thyroid Peroxidase Antibodies <1 <9 IU/mL [facility] Comment:THIS TEST WAS PERFOR MED AT:[employer] [address] [phone] BERGERON MD Blood Venous blood specimen / Unknown 04/24/2024 3:20 PM EST 04/24/2024 4:12 PM EST Linda Lucas MD LAB BLOOD ORDERABLES Final Resul t Performing Organization Address [facility] Phone Number [facility] [address] [place] [phone] * (ABNORMAL) POCT glycosylated hemoglobin (Hgb A1c) (04/24/2024 2:36 PM EST) Hemoglobin A1C 7.6(A) 4.0 - 6.0 % QC Media Lot # [id number] Lot# Expiration Date Blood Capillary blood specimen / Unknown 04/24/2024 2:36 PM EST Linda Lucas MD POINT OF CARE TEST ENTER/EDIT OR DERABLES Final Result * POCT glucose manually resulted (04/24/2024 2:36 PM EST) Glucose Blood, POC 182 60 - 200 mg/dL [employer] Lot # [id number] Lot# Expiration Date ,025 Blood Capillary blood specimen / Unknown 04/24/2024 2:36 PM EST Linda Lucas MD POINT OF CARE TEST ENTER/EDIT OR DERABLES Final Result documented in this encounter Visit Diagnoses Diagnosis Type 2 diabetes mellitus with hyperglycemia, with long-term current use of insulin ([facility])- Primary Primary hypertension Unspecified essential hypertension Obstructive sleep apnea syndrome Obstructive sleep apnea (adult) (pediatric) 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 Seizure disorder ([facility]/HCC) Unspecified epilepsy without mention of intractable epilepsy Low TSH level Chronic pain of right knee Transaminitis Nonspecific elevation of levels of transaminase or lactic acid dehydrogenase (LDH) Metabolic dysfunction-associated steatotic liver disease (MASLD) Dietary counseling Dietary surveillance and counseling Exercise counseling Class 2 severe obesity due to excess calories with serious comorbidity and body mass index (BMI) of 39.0 to 39.9 in adult (CMS/HCC) Dyslipidemia Other and unspecified hyperlipidemia Hypertriglyceridemia Pure hyperglyceridemia Increased creatine kinase level Other nonspecific abnormal serum enzyme levels Traumatic arthropathy of knee, unspecified laterality documented in this encounter Additional Health Concerns Assessment Noted Time PHQ-9 Depression Total Score: 6 04/25/19 25 9:20 AM EST documented as of this encounter 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
--- OUTSIDE RECORDS SUMMARY | 2024-05-21 09:50 | XMS_ITS | Encounter Summary ---
Author Organization [email or web address] [facility] Address [address] [place] [address] Care Team Providers Care [employer]cher [employer] Name Role Phone Linda Lucas MD Primary Care Provider [phone] Emile Brambila PharmD Unavailable [phone] Encounter Details Date Type Department Care Team (Late st Contact Info) Description 03/15/2022 Orders Only [facility] [address], [place] [phone] Fabrice Newsome, PharmD ERRONEOUS ENCOUNTER--DISREGARD (Primary Dx) Social History Tobacco Use Types [...] Recorded In the last 10 days, have stephy ryan been in contact with someone who was confirmed or suspected to have Coronavirus/COVID-19? No / Unsure 03/15/2022 3:16 PM EST documented as of this encounter Plan of Treatment Not on file documented as of this encounter Visit Diagnoses Diagnosis ERRONEOUS ENCOUNTER--DISREGARD- Primary documented in this encounter Care Teams [employer] Relationship Specialty Start Date End Date Linda Lucas MD [address], [place] [phone] PCP - General Family Medicine 04/04/18 Emile Brambila, PharmD [address] [place] [address] Pharmacist Internal Medicine 07/12/22 documented as of this encounter
== END 2024-05-21 09:48 | disposition home or self-care (01) ==
LOC: HO.US 09:47
PROVIDERS: PCP Family Medicine; Visit Provider Family Medicine
DX: K76.0 Fatty (change of) liver, not elsewhere classified (principal)
CPT/HCPCS: 76700; 76981

== ENCOUNTER → 2024-05-21 09:48 | Outpatient (BNV) | payer OTHER, SELFPAY | PROVIDERS: PCP Family Medicine; Visit Provider Radiology Diagnostic Radiology | DX: N28.1 Cyst of kidney, acquired (principal) | CPT/HCPCS: 76700 ==